=== PATIENT | female | born 1940 | race Caucasian/White ===

== ENCOUNTER → 2018-01-30 08:04 | Outpatient (CLI) | payer MEDICARE, OTHER, SELFPAY ==
[2018-01-30 10:06] LABS: Absolute Lymphocyte Count 1.82 X10^3/ul (0.83-4.51); Absolute Neutrophil Count 2.8 X10^3/uL (2.0-7.7); Basophil# 0.02 X10^3/uL; Basophil% 0.4 % (0-1); Eosinophil# 0.09 X10^3/uL; Eosinophils% 1.7 % (0-5); Hematocrit 40.3 % (37-47); Hemoglobin 12.9 g/dl (12.0-15.0); Lymphocyte # 1.82 X10^3/ul (4.0); Lymphocyte % 34.6 % (19-41); Mean Corpuscular Hgb 29.4 pg (27.0-32.0); Mean Corpuscular Volume 91.8 fL (81-99); Mean Platelet Vol. 10.6 fl (6.2-12.0); Monocyte# 0.52 X10^3/uL; Monocyte% 9.9 % (0-10); Neutrophil % 53.2 % (47-70); Platelet Count 197 K/mm3 (150-450); RBC Distribution Width CV 13.4 % (11.6-14.6); RBC Distribution Width SD 44.6 fl (35.1-43.9); Red Blood Count 4.39 M/mm3 (4.2-5.4); White Blood Count 5.3 K/mm3 (4.4-11.0)
[2018-01-30 10:07] LABS: POSITIVE COUNT NO; POSITIVE DIFFERENTIAL NO; POSITIVE MORPHOLOGY NO
[2018-01-30 10:18] LABS: AST(SGOT) 22 U/L (15-37); Alanine Aminotransfer ALT/SGPT 26 U/L (13-56); Albumin, Serum 3.5 g/dL (3.2-5.0); Alkaline Phosphatase 61 U/L (45-117); Anion Gap 6 (5-15); BUN 17 mg/dL (7-18); BUN/Creat Ratio 15.2 RATIO (10-20); Calcium,Total 8.7 mg/dL (8.5-10.1); Chloride 107 mmol/L (98-107); Creatinine, Serum 1.12 mg/dL (0.55-1.02); EST Glomerular Filtration Rate 50 mL/min (>60); Est Glom Filt Rate - Afr Amer 61 mL/min (>60); Globulin 3.6 g/dL (2.2-4.2); Glucose 74 mg/dL (74-106); Potassium 4.1 mmol/L (3.5-5.1); Protein, Total 7.1 g/dL (6.4-8.2); Sodium Level 143 mmol/L (136-145)
== END ==
PROVIDERS: Family Provider Family Medicine; PCP Family Medicine; Visit Provider Internal Medicine Rheumatology
DX: M06.4 Inflammatory polyarthropathy (principal); M15.9 Polyosteoarthritis, unspecified; M16.0 Bilateral primary osteoarthritis of hip; M47.897 Other spondylosis, lumbosacral region; M17.0 Bilateral primary osteoarthritis of knee; M81.0 Age-related osteoporosis without current pathological fracture
CPT/HCPCS: 36415; 80053; 85025

== ENCOUNTER → 2018-02-25 15:33 | Outpatient (CLI) | payer MEDICARE, OTHER, SELFPAY | PROVIDERS: Family Provider Family Medicine; PCP Family Medicine; Visit Provider Family Medicine | DX: N39.0 Urinary tract infection, site not specified (principal) | CPT/HCPCS: 87086; 87088; 87186 ==

== ENCOUNTER → 2018-05-28 09:15 | Outpatient (CLI) | payer MEDICARE, OTHER, SELFPAY ==
--- NOTE | 2018-05-28 09:20 | BI_ITS ---
MAMMOGRAPHY - BILATERAL SCREENING REASON FOR EXAM: Female, 77 years old. Routine annual screening examination. PERTINENT HISTORY: Non-contributory. TECHNIQUE: Digital bilateral breast sahara (3D mammographic acquisition) in the CC and MLO projections. 2-D mediolateral oblique (MLO) and craniocaudad (CC) views of both breasts were obtained. CAD: Full Field Digital Mammography with Computer Added Detection was performed. COMPARISON: Comparison is made with prior study dated March 26, 2017 and March 07, 2016. FINDINGS: Breast Composition: There are scattered areas of fibroglandular density. There are no dominant masses or suspicious calcifications. No other significant abnormalities are identified. There has been no significant change since the prior study. BI/SCREENING MAMM (CAD), BILAT IMPRESSION: Stable bilateral screening mammogram. Yearly follow-up mammogram recommended. (A) ASSESSMENT CATEGORY: BIRADS Category 1: Negative. A letter regarding these results will be sent to the patient by the facility within 30 days. Approximately 10% of breast cancers are not detected by mammography. A normal mammogram should not delay biopsy of a clinically suspicious abnormality. [id number] Electronically Signed: Josafat Wooten MD at 14:16 EDT Tel [phone], Service support ,
--- NOTE | 2018-05-28 09:27 | BD_ITS ---
STUDY: DUAL ENERGY X-RAY ABSORPTIOMETRY / DXA REASON FOR EXAM: Female, 77 years old. The patient is postmenopausal. No loss of height. TECHNIQUE: Bone Mineral Density (BMD) measurements of lumbar spine and bilateral hips were obtained. COMPARISON: Comparison is made with prior study dated March 07, 2016. FINDINGS: Lumbar Spine (L1-L4): g/cm2 (1.206) / T-score (0.2) / Z-score (2.0) Findings are suggestive of normal bone density with a low fracture risk. Left Femur Total: g/cm2 (0.758) / T-score (-2.0) / Z-score (-0.2) Left Femoral Neck: g/cm2 (0.740) / T-score (-2.1) / Z-score (-0.2) Right Femur Total: g/cm2 (0.764) / T-score (-1.9) / Z-score (-0.1) Right Femoral Neck: g/cm2 (0.752) / T-score (-2.1) / Z-score (-0.1) The T-Scores on the most recent prior examination were: Lumbar Spine (L1-L4): There has been worsening of bone density since the previous examination. Left Femur Total: which represents a worsening of 0.1%. Right Femur Total: which represents a worsening of 2.6%. BD/Dexa Bone Density Study IMPRESSION: The patient is considered osteopenic as outlined below according to World Candido Organization (WHO) criteria with a moderate fracture risk. There has been worsening of bone density since the previous examination. Reference Information: The T-score is the number of standard deviations above or below the standard which is normal for young adults at their peak bone mineral density. The World Health Organization (WHO) interprets the T-scores as follows: Above -1 Normal bone density Between -1 and -2.5 Osteopenia Equal to / or below -2.5 Osteoporosis As a practical clinical guideline, osteopenia may be graded as follows: Mild -1 through -1.5 Moderate -1.6 through -2.0 Severe -2.1 through -2.4 The Z-score is the number of standard deviations above or below age-matched controls. A Z-score of less than -1.5 would be considered abnormal. References: 1. NIH Osteoporosis and Related Bone Diseases http://www.osteo.org 2. International Society for Clinical Densitometry http://www.iscd.org 3. National Osteoporosis Foundation http://www.nof.org Electronically Signed: Josafat Wooten MD at 10:34 EDT Tel [phone], Service support ,
== END ==
PROVIDERS: Family Provider Family Medicine; PCP Family Medicine; Visit Provider Family Medicine
DX: Z12.31 Encounter for screening mammogram for malignant neoplasm of breast (principal); M81.0 Age-related osteoporosis without current pathological fracture
CPT/HCPCS: 77063; 77067; 77080

== ENCOUNTER → 2018-07-22 08:46 | Outpatient (CLI) | payer MEDICARE, OTHER, SELFPAY ==
[2018-07-22 11:57] LABS: Absolute Lymphocyte Count 1.86 X10^3/ul (0.83-4.51); Absolute Neutrophil Count 2.3 X10^3/uL (2.0-7.7); Basophil# 0.02 X10^3/uL; Basophil% 0.4 % (0-1); Eosinophil# 0.09 X10^3/uL; Eosinophils% 1.9 % (0-5); Hematocrit 41.3 % (37-47); Hemoglobin 12.8 g/dl (12.0-15.0); Lymphocyte # 1.86 X10^3/ul (4.0); Lymphocyte % 39.1 % (19-41); Mean Corpuscular Hgb 28.8 pg (27.0-32.0); Mean Corpuscular Volume 92.8 fL (81-99); Monocyte# 0.52 X10^3/uL; Monocyte% 10.9 % (0-10); Neutrophil # 2.27 X10^3/uL (2.7-7.7); Neutrophil % 47.7 % (47-70); Platelet Count 201 K/mm3 (150-450); RBC Distribution Width CV 13.5 % (11.6-14.6); RBC Distribution Width SD 45.9 fl (35.1-43.9); Red Blood Count 4.45 M/mm3 (4.2-5.4); White Blood Count 4.8 K/mm3 (4.4-11.0)
[2018-07-22 11:59] LABS: POSITIVE COUNT NO; POSITIVE DIFFERENTIAL NO; POSITIVE MORPHOLOGY NO
[2018-07-22 12:18] LABS: AST(SGOT) 18 U/L (15-37); Alanine Aminotransfer ALT/SGPT 23 U/L (13-56); Albumin, Serum 3.6 g/dL (3.2-5.0); Alkaline Phosphatase 58 U/L (45-117); Anion Gap 8 (5-15); BUN 13 mg/dL (7-18); BUN/Creat Ratio 12.1 RATIO (10-20); Chloride 105 mmol/L (98-107); Creatinine, Serum 1.07 mg/dL (0.55-1.02); EST Glomerular Filtration Rate 53 mL/min (>60); Est Glom Filt Rate - Afr Amer 64 mL/min (>60); Globulin 3.6 g/dL (2.2-4.2); Glucose 92 mg/dL (74-106); Potassium 4.1 mmol/L (3.5-5.1); Protein, Total 7.2 g/dL (6.4-8.2); Sodium Level 140 mmol/L (136-145)
== END ==
PROVIDERS: Family Provider Family Medicine; PCP Family Medicine; Visit Provider Family Medicine
DX: E55.9 Vitamin D deficiency, unspecified (principal); Z51.81 Encounter for therapeutic drug level monitoring
CPT/HCPCS: 36415; 80053; 82306; 85025

== ENCOUNTER → 2019-04-29 | Outpatient (CLI) | payer MEDICARE, OTHER, SELFPAY ==
[2019-04-29 09:56] LABS: Absolute Lymphocyte Count 1.72 X10^3/ul (0.83-4.51); Absolute Neutrophil Count 2.9 X10^3/uL (2.0-7.7); Basophil# 0.03 X10^3/uL; Basophil% 0.6 % (0-1); Eosinophil# 0.19 X10^3/uL; Eosinophils% 3.6 % (0-5); Hematocrit 42.6 % (37-47); Hemoglobin 13.8 g/dl (12.0-15.0); Lymphocyte # 1.72 X10^3/ul (4.0); Lymphocyte % 32.4 % (19-41); Mean Corp Hgb Conc 32.4 g/gl (32-36); Mean Corpuscular Hgb 29.3 pg (27.0-32.0); Mean Corpuscular Volume 90.4 fL (81-99); Mean Platelet Vol. 10.4 fl (6.2-12.0); Monocyte# 0.52 X10^3/uL; Monocyte% 9.8 % (0-10); Neutrophil # 2.85 X10^3/uL (2.7-7.7); Neutrophil % 53.6 % (47-70); Platelet Count 209 K/mm3 (150-450); RBC Distribution Width CV 12.9 % (11.6-14.6); RBC Distribution Width SD 42.9 fl (35.1-43.9); Red Blood Count 4.71 M/mm3 (4.2-5.4); White Blood Count 5.3 K/mm3 (4.4-11.0)
[2019-04-29 10:16] LABS: POSITIVE COUNT NO; POSITIVE DIFFERENTIAL NO; POSITIVE MORPHOLOGY NO
[2019-04-29 10:39] LABS: AST(SGOT) 19 U/L (15-37); Alanine Aminotransfer ALT/SGPT 22 U/L (13-56); Albumin, Serum 3.8 g/dL (3.2-5.0); Alkaline Phosphatase 64 U/L (45-117); Anion Gap 6 (5-15); BUN 19 mg/dL (7-18); BUN/Creat Ratio 19.3 RATIO (10-20); Calcium,Total 9.3 mg/dL (8.5-10.1); Chloride 107 mmol/L (98-107); Cholesterol 201 mg/dL (200); Creatinine, Serum 0.98 mg/dL (0.55-1.02); EST Glomerular Filtration Rate 58 mL/min (>60); Est Glom Filt Rate - Afr Amer 71 mL/min (>60); Globulin 3.7 g/dL (2.2-4.2); Glucose 80 mg/dL (74-106); High Density Lipoprotein 68 mg/dL; Potassium 3.9 mmol/L (3.5-5.1); Protein, Total 7.5 g/dL (6.4-8.2); Sodium Level 139 mmol/L (136-145); Triglycerides 80 mg/dL; Very Low Density Lipoprotein 16 mg/dL (5-40)
== END | disposition home or self-care (01) ==
PROVIDERS: Family Provider Family Medicine; PCP Family Medicine; Referring Provider Family Medicine; Visit Provider Family Medicine
DX: N28.9 Disorder of kidney and ureter, unspecified (principal); Z51.81 Encounter for therapeutic drug level monitoring; E78.5 Hyperlipidemia, unspecified
CPT/HCPCS: 36415; 80053; 80061; 85025

== ENCOUNTER → 2019-05-31 | Outpatient (CLI) | payer MEDICARE, OTHER, SELFPAY ==
--- NOTE | 2019-05-31 09:56 | BI_ITS ---
MAMMOGRAPHY - BILATERAL SCREENING 3-D TOMOSYNTHESIS REASON FOR EXAM: Female, 78 years old. Bilateral Screening 3-D tomosynthesis PERTINENT HISTORY: No significant family history. TECHNIQUE: 2-D mammograms and 3-D Tomosynthesis of the breast (s) were performed. CAD was performed. COMPARISON: None. FINDINGS: The breast composition is composed of scattered fibroglandular density. Scattered benign calcifications are seen. No dense spiculated masses or suspicious microcalcifications are identified. No architectural distortion is identified. There is no skin thickening or retraction. There has been no significant change since the prior study. BI/SCREEN MAMM (CAD) W/GILMAR BILAT IMPRESSION: No mammographic signs of malignancy. Routine yearly mammograms recommended. ASSESSMENT CATEGORY: BIRADS Category 1: Negative. A letter regarding these results will be sent to the patient by the facility within 30 days. FOLLOW UP RECOMMENDATION: Yearly follow up mammogram recommended. (A) Approximately 10% of breast cancers are not detected by mammography. A normal mammogram should not delay biopsy of a clinically suspicious abnormality. Electronically Signed: Emiliano Meier MD at 12:26 EDT , Service support ,
== END | disposition home or self-care (01) ==
LOC: OPBI 09:54
PROVIDERS: Family Provider Family Medicine; PCP Family Medicine; Referring Provider Family Medicine; Visit Provider Family Medicine
DX: Z12.31 Encounter for screening mammogram for malignant neoplasm of breast (principal)
CPT/HCPCS: 77063; 77067

== ENCOUNTER → 2020-06-21 08:13 | Outpatient (CLI) | payer MEDICARE, OTHER, SELFPAY ==
--- NOTE | 2020-06-21 08:16 | BI_ITS ---
MAMMOGRAPHY - BILATERAL SCREENING REASON FOR EXAM: Female, 79 years old. Routine annual screening examination. PERTINENT HISTORY: Non-contributory. TECHNIQUE: Digital bilateral breast gilmar (3D mammographic acquisition) in the CC and MLO projections. 2-D mediolateral oblique (MLO) and craniocaudad (CC) views of both breasts were obtained. CAD: Full Field Digital Mammography with Computer Added Detection was performed. COMPARISON: Comparison is made with prior examination dated 05/31/2019 and 05/28/2018. FINDINGS: Breast Composition: There are scattered areas of fibroglandular density. There are no dominant masses or suspicious calcifications. Small benign appearing bilateral axillary lymph nodes. No other significant abnormalities are identified. There has been no significant change since the prior study. BI/SCREEN MAMM (CAD) W/GILMAR BILAT IMPRESSION: Stable bilateral screening mammogram. Yearly follow-up mammogram recommended. (A) ASSESSMENT CATEGORY: BIRADS Category 2: Benign. A letter regarding these results will be sent to the patient by the facility within 30 days. Approximately 10% of breast cancers are not detected by mammography. A normal mammogram should not delay biopsy of a clinically suspicious abnormality. [id number] Electronically Signed: Josafat Wooten, at 10:06 EDT , Service support ,
== END ==
PROVIDERS: PCP Family Medicine; Referring Provider Family Medicine; Visit Provider Family Medicine
DX: Z12.31 Encounter for screening mammogram for malignant neoplasm of breast (principal)
CPT/HCPCS: 77063; 77067

== ENCOUNTER → 2020-07-19 07:41 | Outpatient (CLI) | payer MEDICARE, OTHER, SELFPAY ==
[2020-07-19 10:24] LABS: Absolute Lymphocyte Count 1.81 X10^3/uL (0.83-4.51); Absolute Neutrophil Count 2.4 X10^3/uL (2.0-7.7); Basophil# 0.03 X10^3/uL; Basophil% 0.6 % (0-1); Eosinophil# 0.16 X10^3/uL; Eosinophils% 3.3 % (0-5); Hematocrit 42.5 % (37-47); Hemoglobin 13.6 g/dL (12.0-15.0); Lymphocyte # 1.81 X10^3/ul (4.0); Lymphocyte % 36.8 % (19-41); Mean Corpuscular Hgb 29.6 pg (27.0-32.0); Mean Corpuscular Volume 92.4 fL (81-99); Mean Platelet Vol. 10.8 fl (6.2-12.0); Monocyte# 0.52 X10^3/uL; Monocyte% 10.6 % (0-10); NRBC Flagged by Analyzer 0 % (0-5); Neutrophil # 2.38 X10^3/uL (2.7-7.7); Neutrophil % 48.3 % (47-70); Platelet Count 207 K/mm3 (150-450); RBC Distribution Width CV 12.8 % (11.6-14.6); RBC Distribution Width SD 43.6 fl (35.1-43.9); White Blood Count 4.9 K/mm3 (4.4-11.0)
[2020-07-19 10:38] LABS: AST(SGOT) 24 U/L (15-37); Alanine Aminotransfer ALT/SGPT 28 U/L (13-56); Albumin, Serum 3.8 g/dL (3.2-5.0); Alkaline Phosphatase 54 U/L (45-117); Anion Gap 5 (5-15); BUN 20 mg/dL (7-18); BUN/Creat Ratio 17.2 RATIO (10-20); Calcium,Total 9.6 mg/dL (8.5-10.1); Chloride 105 mmol/L (98-107); Creatinine, Serum 1.16 mg/dL (0.55-1.02); EST Glomerular Filtration Rate 48 mL/min (>60); Est Glom Filt Rate - Afr Amer 58 mL/min (>60); Globulin 3.8 g/dL (2.2-4.2); Glucose 83 mg/dL (74-106); Potassium 4.1 mmol/L (3.5-5.1); Protein, Total 7.6 g/dL (6.4-8.2); Sodium Level 139 mmol/L (136-145)
[2020-07-19 10:40] LABS: Vitamin D,25 Hydroxy 67.6 ng/mL
== END ==
PROVIDERS: PCP Family Medicine; Referring Provider Family Medicine; Visit Provider Family Medicine
DX: E55.9 Vitamin D deficiency, unspecified (principal); N28.9 Disorder of kidney and ureter, unspecified; Z13.220 Encounter for screening for lipoid disorders; Z51.81 Encounter for therapeutic drug level monitoring
CPT/HCPCS: 36415; 80053; 82306; 85025

== ENCOUNTER → 2020-12-18 15:10 | Outpatient (CLI) | payer MEDICARE, OTHER, SELFPAY | PROVIDERS: PCP Family Medicine; Referring Provider Family Medicine; Visit Provider Family Medicine | DX: Z20.828 Contact with and (suspected) exposure to other viral communicable diseases (principal) | CPT/HCPCS: 87635; C9803; U0005; U0003 ==

== ENCOUNTER → 2021-04-25 10:48 | Outpatient (CLI) | payer MEDICARE, OTHER, SELFPAY ==
--- NOTE | 2021-04-25 10:54 | EKG12_ITS ---
Test Reason : PRE-OP Blood Pressure : / mmHG Vent. Rate : 067 BPM Atrial Rate : 067 BPM P-R Int : 148 ms QRS Dur : 072 ms QT Int : 404 ms P-R-T Axes : 028 037 015 degrees QTc Int : 426 ms Normal sinus rhythm Normal ECG Confirmed by AISHA SANTILLAN, TYRA ([id number]), legal editor SAIMA MALAVE ([id number]) on 04/26/2021 11:17:45 A M Referred By: Tigre Ogden Confirmed By:STEVEN LEONARD MD
[2021-04-25 11:37] LABS: Hematocrit 41.6 % (37-47); Hemoglobin 13.2 g/dL (12.0-15.0); Mean Corp Hgb Conc 31.7 g/dL (32-36); Mean Corpuscular Hgb 29.2 pg (27.0-32.0); Mean Platelet Vol. 10.6 fl (6.2-12.0); Platelet Count 196 K/mm3 (150-450); RBC Distribution Width SD 43.9 fl (35.1-43.9); Red Blood Count 4.52 M/mm3 (4.2-5.4); White Blood Count 5.7 K/mm3 (4.4-11.0)
[2021-04-25 12:08] LABS: Anion Gap 2 (5-15); BUN 13 mg/dL (7-18); BUN/Creat Ratio 11.8 RATIO (10-20); Calcium,Total 9.7 mg/dL (8.5-10.1); Chloride 105 mmol/L (98-107); EST Glomerular Filtration Rate 51 mL/min (>60); Est Glom Filt Rate - Afr Amer 62 mL/min (>60); Glucose 88 mg/dL (74-106); Potassium 4.6 mmol/L (3.5-5.1); Sodium Level 138 mmol/L (136-145)
== END ==
PROVIDERS: PCP Family Medicine; Referring Provider Physician Assistant; Visit Provider Physician Assistant
DX: Z01.818 Encounter for other preprocedural examination (principal); Z01.810 Encounter for preprocedural cardiovascular examination
CPT/HCPCS: 36415; 80048; 85027; 93005

== ENCOUNTER → 2021-07-20 07:43 | Outpatient (CLI) | payer MEDICARE, OTHER, SELFPAY ==
--- NOTE | 2021-07-20 07:52 | BI_ITS ---
MAMMOGRAPHY - BILATERAL SCREENING REASON FOR EXAM: Female, 80 years old. Routine annual screening examination. PERTINENT HISTORY: Non-contributory. TECHNIQUE: Digital bilateral breast gilmar (3D mammographic acquisition) in the CC and MLO projections. 2-D mediolateral oblique (MLO) and craniocaudad (CC) views of both breasts were obtained. CAD: Full Field Digital Mammography with Computer Added Detection was performed. COMPARISON: Comparison is made with prior study 06/21/2020 and 05/31/2019 FINDINGS: Breast Composition: There are scattered areas of fibroglandular density. There are no dominant masses or suspicious calcifications. Small benign-appearing bilateral axillary lymph nodes. No other significant abnormalities are identified. There has been no significant change since the prior study. BI/SCRN MAMM (CAD)W/GILMAR BILAT IMPRESSION: Stable bilateral screening mammogram. Yearly follow-up mammogram recommended. (A) ASSESSMENT CATEGORY: BIRADS Category 2: Benign. A letter regarding these results will be sent to the patient by the facility within 30 days. Approximately 10% of breast cancers are not detected by mammography. A normal mammogram should not delay biopsy of a clinically suspicious abnormality. [id number] Electronically Signed: Josafat Wooten MD at 9:03 EDT , Service support ,
== END ==
PROVIDERS: PCP Family Medicine; Referring Provider Family Medicine; Visit Provider Family Medicine
DX: Z12.31 Encounter for screening mammogram for malignant neoplasm of breast (principal)
CPT/HCPCS: 77063; 77067

== ENCOUNTER → 2021-08-09 09:08 | Outpatient (CLI) | payer MEDICARE, OTHER, SELFPAY ==
--- NOTE | 2021-08-09 09:10 | RAD_ITS ---
STUDY: X-RAY CHEST REASON FOR EXAM: Female, 80 years old. COUGH TECHNIQUE: PA and lateral COMPARISON: None. FINDINGS: There is minor interstitial thickening in the lower lobes. Patchy areas of opacification is seen peripherally in the left lower lobe which may be consistent with Covid 19 pneumonia.. There is no demonstrated pleural abnormality. Normal size heart. Normal mediastinum and dulce maria. Normal visualized pulmonary arteries. Normal visualized aortic arch and descending thoracic aorta. Normal visualized thoracic spine. Normal visualized ribs, clavicles, and shoulders. There is no demonstrated abnormality of the visualized soft tissue structures of the upper abdomen. RAD/Chest PA and Lateral IMPRESSION: Findings highly suggestive of Covid 19 pneumonia with most pronounced involvement in left lower lobe Electronically Signed: Trevor Love MD at 17:06 EDT , Service support ,
== END ==
PROVIDERS: PCP Family Medicine; Referring Provider Family Medicine; Visit Provider Family Medicine
DX: R05 Cough (principal); B94.8 Sequelae of other specified infectious and parasitic diseases
CPT/HCPCS: 71046

== ENCOUNTER → 2022-07-24 | Outpatient (CLI) | payer MEDICARE, OTHER, SELFPAY ==
--- NOTE | 2022-07-24 08:26 | BI_ITS ---
MAMMOGRAPHY - BILATERAL SCREENING REASON FOR EXAM: Female, 81 years old. Routine annual screening examination. PERTINENT HISTORY: Non-contributory. TECHNIQUE: Digital bilateral breast gilmar (3D mammographic acquisition) in the CC and MLO projections. 2-D mediolateral oblique (MLO) and craniocaudad (CC) views of both breasts were obtained. CAD: Full Field Digital Mammography with Computer Added Detection was performed. COMPARISON: Comparison is made with prior study 07/20/2021 and 06/21/2020. FINDINGS: Breast Composition: There are scattered areas of fibroglandular density. There are no dominant masses or suspicious calcifications. No other significant abnormalities are identified. There has been no significant change since the prior study. BI/SCRN MAMM (CAD)W/GILMAR BILAT IMPRESSION: Stable bilateral screening mammogram. Yearly follow-up mammogram recommended. (A) ASSESSMENT CATEGORY: BIRADS Category 1: Negative. A letter regarding these results will be sent to the patient by the facility within 30 days. Approximately 10% of breast cancers are not detected by mammography. A normal mammogram should not delay biopsy of a clinically suspicious abnormality. [id number] Electronically Signed: Josafat Wooten MD at 9:00 EDT ,
== END | disposition home or self-care (01) ==
LOC: OPBI 08:25
PROVIDERS: PCP Family Medicine; Referring Provider Family Medicine; Visit Provider Family Medicine
DX: Z12.31 Encounter for screening mammogram for malignant neoplasm of breast (principal)
CPT/HCPCS: 77063; 77067

== ENCOUNTER → 2022-08-26 | Outpatient (CLI) | payer MEDICARE, OTHER, SELFPAY ==
[2022-08-26 12:19] LABS: Absolute Lymphocyte Count 2.27 X10^3/uL (0.83-4.51); Absolute Neutrophil Count 2.9 X10^3/uL (2.0-7.7); Basophil# 0.03 X10^3/uL; Basophil% 0.5 % (0-1); Eosinophil# 0.12 X10^3/uL; Hematocrit 43.5 % (37-47); Hemoglobin 13.6 g/dL (12.0-15.0); Lymphocyte # 2.27 X10^3/ul (0.83-4.51); Lymphocyte % 38.3 % (19-41); Mean Corp Hgb Conc 31.3 g/dL (32-36); Mean Corpuscular Hgb 29.2 pg (27.0-32.0); Mean Corpuscular Volume 93.3 fL (81-99); Mean Platelet Vol. 10.8 fl (6.2-12.0); Monocyte# 0.59 X10^3/uL; NRBC Flagged by Analyzer 0 % (0-5); Neutrophil # 2.89 X10^3/uL (2.7-7.7); Neutrophil % 48.9 % (47-70); Platelet Count 242 K/mm3 (150-450); RBC Distribution Width CV 13.5 % (11.6-14.6); RBC Distribution Width SD 45.8 fl (35.1-43.9); Red Blood Count 4.66 M/mm3 (4.2-5.4); White Blood Count 5.9 K/mm3 (4.4-11.0)
[2022-08-26 13:43] LABS: Vitamin D,25 Hydroxy 72.6 ng/mL
[2022-08-26 13:50] LABS: AST(SGOT) 21 U/L (15-37); Alanine Aminotransfer ALT/SGPT 25 U/L (13-56); Albumin, Serum 3.8 g/dL (3.2-5.0); Alkaline Phosphatase 62 U/L (45-117); Anion Gap 8 (5-15); BUN 16 mg/dL (7-18); BUN/Creat Ratio 14.4 RATIO (10-20); Calcium,Total 9.5 mg/dL (8.5-10.1); Chloride 105 mmol/L (98-107); Cholesterol 195 mg/dL (200); Creatinine, Serum 1.11 mg/dL (0.55-1.02); EST Glomerular Filtration Rate 50 mL/min (>60); Est Glom Filt Rate - Afr Amer 61 mL/min (>60); Globulin 3.7 g/dL (2.2-4.2); Glucose 99 mg/dL (74-106); High Density Lipoprotein 80 mg/dL; Potassium 4.4 mmol/L (3.5-5.1); Protein, Total 7.5 g/dL (6.4-8.2); Sodium Level 141 mmol/L (136-145); Triglycerides 75 mg/dL; Very Low Density Lipoprotein 15 mg/dL (5-40)
== END | disposition home or self-care (01) ==
LOC: BFHLAB 08:53
PROVIDERS: PCP Family Medicine; Referring Provider Family Medicine; Visit Provider Family Medicine
DX: Z00.00 Encounter for general adult medical examination without abnormal findings (principal); E55.9 Vitamin D deficiency, unspecified; E78.5 Hyperlipidemia, unspecified
CPT/HCPCS: 36415; 80053; 80061; 82306; 85025

== ENCOUNTER → 2023-08-07 | Outpatient (CLI) | payer MEDICARE, OTHER, SELFPAY ==
--- NOTE | 2023-08-07 15:14 | BI_ITS ---
MAMMOGRAPHY - BILATERAL SCREENING REASON FOR EXAM: Female, 82 years old. Routine annual screening examination. PERTINENT HISTORY: Non-contributory. TECHNIQUE: Digital bilateral breast gilmar (3D mammographic acquisition) in the CC and MLO projections. 2-D mediolateral oblique (MLO) and craniocaudad (CC) views of both breasts were obtained. CAD: Full Field Digital Mammography with Computer Added Detection was performed. COMPARISON: Comparison is made with prior study dated July 24, 2022 and July 20, 2021. FINDINGS: Breast Composition: There are scattered areas of fibroglandular density. There are no dominant masses or suspicious calcifications. No other significant abnormalities are identified. There has been no significant change since the prior study. BI/SCRN MAMM (CAD)W/GILMAR BILAT IMPRESSION: Stable bilateral screening mammogram. Yearly follow-up mammogram recommended. (A) ASSESSMENT CATEGORY: BIRADS Category 1: Negative. A letter regarding these results will be sent to the patient by the facility within 30 days. Approximately 10% of breast cancers are not detected by mammography. A normal mammogram should not delay biopsy of a clinically suspicious abnormality. [id number] Electronically Signed: Josafat Wooten MD at 8:50 EDT ,
--- NOTE | 2023-08-07 15:20 | BD_ITS ---
STUDY: DUAL ENERGY X-RAY ABSORPTIOMETRY / DXA REASON FOR EXAM: Female, 82 years old. [id number] TECHNIQUE: Bone Mineral Density (BMD) measurements of lumbar spine and bilateral hips were obtained. COMPARISON: Comparison is made with prior study dated May 28, 2018. FINDINGS: Lumbar Spine (L1-L4): g/cm2 (1.012) / T-score (-0.3) / Z-score (2.4) Findings are suggestive of normal bone density with a low fracture risk. Left Femur Total: g/cm2 (0.680) / T-score (-2.1) / Z-score (0.0) Left Femoral Neck: g/cm2 (0.588) / T-score (-2.3) / Z-score (0.0) Right Femur Total: g/cm2 (0.691) / T-score (-2.1) / Z-score (0.1) Right Femoral Neck: g/cm2 (0.596) / T-score (-2.3) / Z-score (0.1) The T-Scores on the most recent prior examination were: Lumbar Spine (L1-L4): There has been worsening of bone density since the previous examination. Left Femur Total: which represents a worsening of 2.7%. Right Femur Total: which represents a worsening of 2%. BD/Dexa Bone Density Study IMPRESSION: The patient is considered osteopenic as outlined below according to World Candido Organization (WHO) criteria with a high fracture risk. There has been worsening of bone density since the previous examination. Reference Information: The T-score is the number of standard deviations above or below the standard which is normal for young adults at their peak bone mineral density. The World Health Organization (WHO) interprets the T-scores as follows: Above -1 Normal bone density Between -1 and -2.5 Osteopenia Equal to / or below -2.5 Osteoporosis As a practical clinical guideline, osteopenia may be graded as follows: Mild -1 through -1.5 Moderate -1.6 through -2.0 Severe -2.1 through -2.4 The Z-score is the number of standard deviations above or below age-matched controls. A Z-score of less than -1.5 would be considered abnormal. References: 1. NIH Osteoporosis and Related Bone Diseases www osteo.org 2. International Society for Clinical Densitometry www iscd.org 3. National Osteoporosis Foundation www nof.org Electronically Signed: Josafat Wooten MD at 14:22 EDT ,
== END | disposition home or self-care (01) ==
LOC: OPBD 15:13
PROVIDERS: PCP Family Medicine; Referring Provider Family Medicine; Visit Provider Family Medicine
DX: Z12.31 Encounter for screening mammogram for malignant neoplasm of breast (principal); M81.0 Age-related osteoporosis without current pathological fracture
CPT/HCPCS: 77063; 77067; 77080

== ENCOUNTER → 2023-08-29 | Outpatient (CLI) | payer MEDICARE, OTHER, SELFPAY ==
[2023-08-29 10:17] LABS: Absolute Lymphocyte Count 2.14 X10^3/uL (0.83-4.51); Absolute Neutrophil Count 3.9 X10^3/uL (2.0-7.7); Basophil# 0.03 X10^3/uL; Basophil% 0.4 % (0-1); Eosinophil# 0.27 X10^3/uL; Eosinophils% 3.8 % (0-5); Hematocrit 41.9 % (37-47); Hemoglobin 13.3 g/dL (12.0-15.0); Lymphocyte # 2.14 X10^3/ul (0.83-4.51); Lymphocyte % 30.4 % (19-41); Mean Corp Hgb Conc 31.7 g/dL (32-36); Mean Corpuscular Hgb 29.2 pg (27.0-32.0); Mean Corpuscular Volume 91.9 fL (81-99); Mean Platelet Vol. 10.5 fl (6.2-12.0); Monocyte# 0.68 X10^3/uL; Monocyte% 9.6 % (0-10); NRBC Flagged by Analyzer 0 % (0-5); Neutrophil % 55.4 % (47-70); Platelet Count 205 K/mm3 (150-450); RBC Distribution Width CV 13.2 % (11.6-14.6); RBC Distribution Width SD 44.2 fl (35.1-43.9); Red Blood Count 4.56 M/mm3 (4.2-5.4); White Blood Count 7.1 K/mm3 (4.4-11.0)
[2023-08-29 10:36] LABS: Vitamin D,25 Hydroxy 58.4 ng/mL
[2023-08-29 11:19] LABS: ALB/GLOB Ratio 0.9 RATIO (0.9-2.4); AST(SGOT) 15 U/L (15-37); Alanine Aminotransfer ALT/SGPT 22 U/L (13-56); Albumin, Serum 3.5 g/dL (3.2-5.0); Alkaline Phosphatase 56 U/L (45-117); Anion Gap 7 (5-15); BUN 17 mg/dL (7-18); BUN/Creat Ratio 15.7 RATIO (10-20); Calcium,Total 9.4 mg/dL (8.5-10.1); Chloride 106 mmol/L (98-107); Cholesterol 174 mg/dL (200); Creatinine, Serum 1.08 mg/dL (0.55-1.02); EST Glomerular Filtration Rate 52 mL/min (>60); Est Glom Filt Rate - Afr Amer 63 mL/min (>60); Globulin 3.7 g/dL (2.2-4.2); Glucose 94 mg/dL (74-106); High Density Lipoprotein 62 mg/dL; Potassium 4.2 mmol/L (3.5-5.1); Protein, Total 7.2 g/dL (6.4-8.2); Sodium Level 140 mmol/L (136-145); Triglycerides 128 mg/dL; Very Low Density Lipoprotein 26 mg/dL (5-40)
== END | disposition home or self-care (01) ==
PROVIDERS: PCP Family Medicine; Referring Provider Family Medicine; Visit Provider Family Medicine
DX: N28.9 Disorder of kidney and ureter, unspecified (principal); E78.5 Hyperlipidemia, unspecified; E55.9 Vitamin D deficiency, unspecified
CPT/HCPCS: 36415; 80053; 80061; 82306; 85025

== ENCOUNTER → 2024-09-21 | Outpatient (CLI) | payer MEDICARE, OTHER, SELFPAY ==
[2024-09-21 12:25] LABS: Absolute Lymphocyte Count 2.48 X10^3/uL (0.83-4.51); Absolute Neutrophil Count 3.5 X10^3/uL (2.0-7.7); Basophil# 0.03 X10^3/uL; Basophil% 0.4 % (0-1); Eosinophil# 0.17 X10^3/uL; Eosinophils% 2.4 % (0-5); Hematocrit 40.4 % (37-47); Hemoglobin 12.5 g/dL (12.0-15.0); Lymphocyte # 2.48 X10^3/ul (0.83-4.51); Lymphocyte % 35.4 % (19-41); Mean Corp Hgb Conc 30.9 g/dL (32-36); Mean Corpuscular Hgb 29.5 pg (27.0-32.0); Mean Corpuscular Volume 95.3 fL (81-99); Mean Platelet Vol. 10.5 fl (6.2-12.0); Monocyte# 0.79 X10^3/uL; Monocyte% 11.3 % (0-10); NRBC Flagged by Analyzer 0 % (0-5); Neutrophil # 3.52 X10^3/uL (2.7-7.7); Neutrophil % 50.2 % (47-70); Platelet Count 196 K/mm3 (150-450); RBC Distribution Width CV 13.8 % (11.6-14.6); RBC Distribution Width SD 48.8 fl (35.1-43.9); Red Blood Count 4.24 M/mm3 (4.2-5.4)
[2024-09-21 12:59] LABS: ALB/GLOB Ratio 0.9 RATIO (0.9-2.4); AST(SGOT) 18 U/L (15-37); Alanine Aminotransfer ALT/SGPT 18 U/L (13-56); Albumin, Serum 3.5 g/dL (3.2-5.0); Alkaline Phosphatase 51 U/L (45-117); Anion Gap 6 (5-15); BUN 21 mg/dL (7-18); BUN/Creat Ratio 21.2 RATIO (10-20); Calcium,Total 9.1 mg/dL (8.5-10.1); Chloride 105 mmol/L (98-107); Cholesterol 193 mg/dL (200); Creatinine, Serum 0.99 mg/dL (0.55-1.02); EST Glomerular Filtration Rate 57 mL/min (>60); Est Glom Filt Rate - Afr Amer 69 mL/min (>60); Globulin 3.8 g/dL (2.2-4.2); Glucose 92 mg/dL (74-106); High Density Lipoprotein 69 mg/dL; Potassium 4.2 mmol/L (3.5-5.1); Protein, Total 7.3 g/dL (6.4-8.2); Sodium Level 139 mmol/L (136-145); Triglycerides 103 mg/dL; Very Low Density Lipoprotein 21 mg/dL (5-40)
== END | disposition home or self-care (01) ==
LOC: BFHLAB 08:15
PROVIDERS: PCP Family Medicine; Referring Provider Family Medicine; Visit Provider Family Medicine
DX: E55.9 Vitamin D deficiency, unspecified (principal); E78.5 Hyperlipidemia, unspecified; Z51.81 Encounter for therapeutic drug level monitoring
CPT/HCPCS: 36415; 80053; 80061; 82306; 85025

== ENCOUNTER → 2025-09-28 | Outpatient (CLI) | payer MEDICARE, OTHER, SELFPAY ==
--- OUTSIDE RECORDS SUMMARY | 2025-09-28 08:10 | XMS RPT_ITS | CCD ---
Author Organization [facility] Care Team Providers Care Application Penetration Tester Name Role Phone Dr. Kaitlyn Oleary DO Primary Care Physician Jossie SANTILLAN, Dr. Rainey Attending Physician Dr. Kaitlyn Oleary DO Referring Provider [phone] Kaitlyn Oleary Primary Care Unavailable Micys, Kaitlyn Attending Unavailable Micys, Kaitlyn Referring Unavailable Malys, Kaitlyn Attending Unavailable Micys, Kaitlyn Referring Unavailable Malys, Kaitlyn Primary Care Unavailable Mamta, Kaitlyn Referring Unavailable Micys, Kaitlyn Primary Care Unavailable Brigid Sethi Attending Unavailable Medications Current Medications Medication Drug Class(es) Dates Sig (Normalized) Sig (Original) estradiol 0.1 mg/ml vaginal cream (1 source) Estrogen Start: 07-27-2025 Estradiol 0.01 % (0.1 mg/gram) cream Active 1 g VAGINAL 3 TIMES A WEEK July 27, 2025 12:00am Complies with drug therapy Problems Active Problems Problem Classification Problem Date Documented Date Episodic/Chronic Disorders of lipid metabolism (1 source) Hyperlipidemia, unspecified; Translations: [Hyperlipidemia, unspecified] Onset: 09-20-2024 Chronic Genitourinary symptoms and ill-defined conditions (1 source) Nocturia; Translations: [Nocturia] Onset: 09-06-2025 Episodic Menopausal disorders (1 source) Postmenopausal atrophic vaginitis; Translations: [Postmenopausal atrophic vaginitis] Onset: 09-06-2025 Chronic Nutritional deficiencies (2 sources) Vitamin D deficiency, unspecified; Translations: [Vitamin D deficiency, unspecified] Onset: 09-20-2024 Chronic Prolapse of female genital organs (1 source) Incomplete uterovaginal prolapse; Translations: [Incomplete uterovaginal prolapse] Onset: 09-06-2025 Chronic Past or Other Problems Problem Classification Problem Date Documented Da te Episodic/Chronic Other aftercare (1 source) Encounter for therapeutic drug level monitoring; Translations: [Encounter for therapeutic drug level monitoring] Onset: 09-20-2024 Episodic Results Test Name Value Interpretation Reference Range Facility MR/Marcelo 07-27-2025 MR/SHRUTHI [facility] [address], [address] [place] [address] OFFICE VISIT Date of Service: 07/27/25 MR#: [id number] Acct: [id number] Name: ELAN MACKEY Rep #: [id number] : 1940 Provider: Dr. 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 Mother Bladder cancer Brother Pancreatic cancer Social History adopted: No household members: spouse housing: house current occupational status: retired leisure activities: exercise do you think of yourself as: straight/heterosexua l current gender identity: female Smoking Status: Former smoker alcohol intake: never substance use type: does not use what type of physical activity do you participate in: walking seatbelt use: always do you feel safe at home: Yes HPI HPI Urology Chief Complaint: 3 mo pessary cleaning Details: ELAN MACKEY, is a 84 F. She is not cleaning the pessary on her own. The pessary has stayed in placed since her last visit. There is no vaginal bleeding or excess vaginal discharge. She is able to urinate without straining and has no difficulties with bowel movements. She is satisfied with the pessary as treatment for her urologic issues. She is using estrogen cream as recommended. ROS Const Constitutional: No chills, fatigue, fever(s), headache(s), night sweats, weakness, weight change, abnormal sleep pattern or change in appetite Eyes Eyes: No change in vision ENT ENT: No headache(s) or dry mouth Resp Respiratory: No cough, chest congestion, shortness of breath or wheezing Cardio Cardiology: Positive for other (No chest pain.); No shortness of breath, irregular heart rhythm or lightheadedness Gastro GI: Positive for other (No nausea.); No abdominal pain, change in bowel habits, constipation, diarrhea or vomiting Musc Musculoskeletal: No abnormal gait Skin Skin: No yellowing of the eye, lesions, itchy eyes, rash or skin ulcer Neuro Neurology: No abnormal gait, confusion, dizziness, weakness, headache(s) or memory loss Psych Psychiatric: No abnormal sleep pattern, No change in appetite, No confusion and No memory loss Endo Endocrine: No fatigue, increased thirst/drinking or weight change Aller/Imm Allergy/Immunologic: No itchy eyes or wheezing Herminio/Lymp Hematologic/Lymphati c: No easy bleeding, easy bruising or enlarged lymph nodes Exam Const General: cooperative, healthy appearing, comfortable and no acute distress [facility] Head: normocephalic and atraumatic Ears: hearing grossly normal bilaterally and external ears normal Nose: external nose normal Eyes General: appearance normal, both eyes and all related structures Neck Neck: normal visual inspection and trachea midline Chest Chest palpation inspection: normal inspection of the chest Resp Effort Inspection: normal respiratory effort, able to speak in complete sentences and symmetric chest movement Cardio Rate: regular rate GI Inspection: normal to inspection Palpation: soft and nontender General: No CVA tenderness Other: The pessary was removed without difficulty. There was minimal normal vaginal drainage present. The vaginal mucosa in its entirety was examined. There are no ulcerations, lacerations or breaks in the mucosa identified. There is no active bleeding. The pessary was cleaned and replaced without any issues. Skin General: no rashes or lesions noted Neuro General: patient alert, patient awake, patient oriented x3 and CN's II-XI intact bilaterally Extrem General: normal to inspection Psych Appearance: grossly normal and well kempt Mental Status: mental status grossly normal Coding Level of Care Code Off vis,est,level 2 Diagnoses Incomplete uterovaginal prolapse N81.2 Postmenopausal atrophic vagini (more content not included)... Normal [facility] CBC W/Diff, Automatedon 11-11 11-2023 Absolute Lymph 2.48 X10 3/uL Normal 0.83-4.51 [facility] Comment on above: Performed By: #### L 506.1000, L500.4100, L500.4050, L100.0100 #### [facility] [address] [place], [address] Absolute Neut 3.5 X10 3/uL Normal 2.0-7.7 [facility] Comment on above: Performed By: #### L 506.1000, L500.4100, L500.4050, L100.0100 #### [facility] [address] [place], [address] Basophils/100 WBC (Bld) 0.4 % Normal 0-1 [facility] Comment on above: Performed By: #### L 506.1000, L500.4100, L500.4050, L100.0100 #### [facility] [address] [place], [address] Eosinophils/100 WBC (Bld) 2.4 % Normal 0-5 [facility] Comment on above: Performed By: #### L 506.1000, L500.4100, L500.4050, L100.0100 #### [facility] [address] [place], [address] Erythrocyte distribution width (RBC) [Ratio] 13.8 % Normal 11.6-14.6 [facility] Comment on above: Performed By: #### L 506.1000, L500.4100, L500.4050, L100.0100 #### [facility] [address] [place], [address] Hematocrit (Bld) [Volume fraction] 40.4 % Normal 37-47 [facility] Comment on above: Performed By: #### L 506.1000, L500.4100, L500.4050, L100.0100 #### [facility] [address] [place], [address] Hemoglobin (Bld) [Mass/Vol] 12.5 g/dL Normal 12.0-15.0 [facility] Comment on above: Performed By: #### L 506.1000, L500.4100, L500.4050, L100.0100 #### [facility] [address] [place], [address] IG% 0.300 Normal 0.0-0.9 [facility] Comment on above: Result Comment: IG% - Immature Granulocytes (promyelocytes, myelocytes and metamyelocytes) > 1% indicates that a LEFT SHIFT is Present. Performed By: #### L 506.1000, L500.4100, L500.4050, L100.0100 #### [facility] [address] [place], [address] Lymphocytes/100 WBC (Bld) 35.4 % Normal 19-41 [facility] Comment on above: Performed By: #### L 506.1000, L500.4100, L500.4050, L100.0100 #### [facility] [address] [place], [address] MCH (RBC) [Entitic mass] 29.5 pg Normal 27.0-32.0 [facility] Comment on above: Performed By: #### L 506.1000, L500.4100, L500.4050, L100.0100 #### [facility] [address] [place], [address] MCHC (RBC) [Mass/Vol] 30.9 g/dL Low 32-36 [facility] Comment on above: Performed By: #### L 506.1000, L500.4100, L500.4050, L100.0100 #### [facility] [address] [place], [address] MCV (RBC) [Entitic vol] 95.3 fL Normal 81-99 [facility] Comment on above: Performed By: #### L 506.1000, L500.4100, L500.4050, L100.0100 #### [facility] [address] [place], [address] Monocytes/100 WBC (Bld) 11.3 % High 0-10 [facility] Comment on above: Performed By: #### L 506.1000, L500.4100, L500.4050, L100.0100 #### [facility] [address] [place], [address] Neutrophils/100 WBC (Bld) 50.2 % Normal 47-70 [facility] Comment on above: Performed By: #### L 506.1000, L500.4100, L500.4050, L100.0100 #### [facility] [address] [place], [address] Nucleated RBC (Bld) [#/Vol] 0 10*3/uL Normal 0-5 [facility] Comment on above: Performed By: #### L 506.1000, L500.4100, L500.4050, L100.0100 #### [facility] [address] [place], [address] Platelet mean volume (Bld) [Entitic vol] 10.5 fL Normal 6.2-12.0 [facility] Comment on above: Performed By: #### L 506.1000, L500.4100, L500.4050, L100.0100 #### [facility] [address] [place], [address] Platelets (Bld) [#/Vol] 196 10*3/uL Normal 150-450 [facility] Comment on above: Performed By: #### L 506.1000, L500.4100, L500.4050, L100.0100 #### [facility] [address] [place], [address] RBC (Bld) [#/Vol] 4.24 10*6/uL Normal 4.2-5.4 [facility] Comment on above: Performed By: #### L 506.1000, L500.4100, L500.4050, L100.0100 #### [facility] [address] [place], [address] RDW SD 48.8 fl High 35.1-43.9 [facility] Comment on above: Performed By: #### L 506.1000, L500.4100, L500.4050, L100.0100 #### [facility] [address] [place], [address] WBC (Bld) [#/Vol] 7.0 10*3/uL Normal 4.4-11.0 [facility] Comment on above: Performed By: #### L 506.1000, L500.4100, L500.4050, L100.0100 #### [facility] [address] [place], [address] Comprehensive Metabolic Prof [facility] 09-21-2024 Albumin [Mass/Vol] 3.5 g/dL Normal 3.2-5.0 [facility] Comment on above: Performed By: #### L 506.1000, L500.4100, L500.4050, L100.0100 #### [facility] [address] [place], [address] Albumin/Globulin [Mass ratio] 0.9 {ratio} Normal 0.9-2.4 [facility] Comment on above: Performed By: #### L 506.1000, L500.4100, L500.4050, L100.0100 #### [facility] [address] [place], [address] ALK P 51 U/L Normal 45-117 [facility] Comment on above: Performed By: #### L 506.1000, L500.4100, L500.4050, L100.0100 #### [facility] [address] [place], [address] ALT [Catalytic activity/Vol] 18 U/L Normal 13-56 [facility] Comment on above: Performed By: #### L 506.1000, L500.4100, L500.4050, L100.0100 #### [facility] [address] [place], [address] AST [Catalytic activity/Vol] 18 U/L Normal 15-37 [facility] Comment on above: Performed By: #### L 506.1000, L500.4100, L500.4050, L100.0100 #### [facility] [address] [place], [address] Bilirubin [Mass/Vol] 0.60 mg/dL Normal 0.20-1.00 [facility] Comment on above: Result Comment: For patients on eltrombopag therapy, use of Dimension [place] TBIL is not recommended. Performed By: #### L 506.1000, L500.4100, L500.4050, L100.0100 #### [facility] [address] [place], [address] BUN/CRE 21.2 RATIO High 10-20 [facility] Comment on above: Performed By: #### L 506.1000, L500.4100, L500.4050, L100.0100 #### [facility] [address] [place], [address] CA,Total 9.1 mg/dL Normal 8.5-10.1 [facility] Comment on above: Performed By: #### L 506.1000, L500.4100, L500.4050, L100.0100 #### [facility] [address] [place], [address] Chloride [Moles/Vol] 105 mmol/L Normal 98-107 [facility] Comment on above: Performed By: #### L 506.1000, L500.4100, L500.4050, L100.0100 #### [facility] [address] [place], [address] CO2 [Moles/Vol] 28.0 mmol/L Normal 21.0-32.0 [facility] Comment on above: Performed By: #### L 506.1000, L500.4100, L500.4050, L100.0100 #### [facility] [address] [place], [address] Creatinine [Mass/Vol] 0.99 mg/dL Normal 0.55-1.02 [facility] Comment on above: Result Comment: The validity of the calculated GFR GFRAA in patients over 70 years has not been determined. Clinical correlation is essential. Performed By: #### L 506.1000, L500.4100, L500.4050, L100.0100 #### [facility] [address] [place], [address] EST GFR - AA 69 mL/min Normal >60 [facility] Comment on above: Result Comment: Afri can Danish GFR Calc Performed By: #### L 506.1000, L500.4100, L500.4050, L100.0100 #### [facility] [address] [place], [address] GAP 6 Normal 5-15 [facility] Comment on above: Performed By: #### L 506.1000, L500.4100, L500.4050, L100.0100 #### [facility] [address] [place], [address] GFR/1.73 sq M.predicted among non-blacks MDRD (S/P/Bld) [Vol rate/Area] 57 mL/min/{1.73_m2} Low >60 [facility] Comment on above: Result Comment: Non- GFR Calc Performed By: #### L 506.1000, L500.4100, L500.4050, L100.0100 #### [facility] [address] [place], [address] Globulin (S) [Mass/Vol] 3.8 g/dL Normal 2.2-4.2 [facility] Comment on above: Performed By: #### L 506.1000, L500.4100, L500.4050, L100.0100 #### [facility] [address] [place], [address] Glucose [Mass/Vol] 92 mg/dL Normal 74-106 [facility] Comment on above: Performed By: #### L 506.1000, L500.4100, L500.4050, L100.0100 #### [facility] [address] [place], [address] Potassium [Moles/Vol] 4.2 mmol/L Normal 3.5-5.1 [facility] Comment on above: Performed By: #### L 506.1000, L500.4100, L500.4050, L100.0100 #### [facility] [address] [place], [address] Sodium [Moles/Vol] 139 mmol/L Normal 136-145 [facility] Comment on above: Performed By: #### L 506.1000, L500.4100, L500.4050, L100.0100 #### [facility] [address] [place], [address] T PROT 7.3 g/dL Normal 6.4-8.2 [facility] Comment on above: Performed By: #### L 506.1000, L500.4100, L500.4050, L100.0100 #### [facility] [address] [place], [address] Urea nitrogen [Mass/Vol] 21 mg/dL High 7-18 [facility] Comment on above: Performed By: #### L 506.1000, L500.4100, L500.4050, L100.0100 #### [facility] [address] [place], [address] Lipid Profileon 09-21-2024 Cholesterol [Mass/Vol] 193 mg/dL Normal 200 [facility] Comment on above: Result Comment: <200 mg/dL Desirable 200-240 mg/dL Borderline >240 mg/dL High Risk Performed By: #### L 506.1000, L500.4100, L500.4050, L100.0100 #### [facility] [address] [place], [address] Cholesterol in HDL [Mass/Vol] 69 mg/dL Normal [facility] Comment on above: Result Comment: The drugs N-Acetylcysteine and Metamizole may falsely depress this assay. Reference Range HDL <40 mg/dL Low HDL Cholesterol HDL >or= 60 mg/dL High HDL Cholesterol Performed By: #### L 506.1000, L500.4100, L500.4050, L100.0100 #### [facility] [address] [place], [address] Cholesterol in LDL [Mass/Vol] 103 mg/dL Normal 0-130 [facility] Comment on above: Performed By: #### L 506.1000, L500.4100, L500.4050, L100.0100 #### [facility] [address] [place], [address] Cholesterol in VLDL [Mass/Vol] 21 mg/dL Normal 5-40 [facility] Comment on above: Performed By: #### L 506.1000, L500.4100, L500.4050, L100.0100 #### [facility] [address] [place], [address] Triglyceride [Mass/Vol] 103 mg/dL Normal [facility] Comment on above: Result Comment: The drugs N-Acetylcysteine and Metamizole may falsely depress this assay. Serum Triglycerides Reference Interval Normal <150 mg/dL Borderline high 150 - 199 mg/dL High 200 - 499 mg/dL Very High > or = 500 mg/dL Performed By: #### L 506.1000, L500.4100, L500.4050, L100.0100 #### [facility] [address] [place], [address] Vitamin D,25 Hydroxyon 09-21 Vitamin D 25-OH 50.0 ng/mL Normal [facility] Comment on above: Result Comment: Elyse min D 25(OH) Status Range Deficiency <20 ng/mL (50nmol/L) Insufficiency 20 - 30 ng/mL (50 - 75 nmol/L) Sufficiency 30 - 100 ng/mL (75 - 250 nmol/L) Toxicity >100 ng/mL (>250 nmol/L) Performed By: #### L 506.1000, L500.4100, L500.4050, L100.0100 #### [facility] [address] [place], [address] Absolute lymphocyte countOrd ered By: Kaitlyn Oleary on 08-29-2023 Lymphocytes Auto (Unsp spec) [#/Vol] 2.14 10*3/uL 0.83-4.51 [facility] Basophil percentageOrdered B y: Kaitlyn Oleary on 08-29-2023 Basophils/100 WBC (Bld) 0.4 % 0-1 [facility] Bilirubin [Mass/Vol] 0.70 mg/dL 0.20-1.00 [facility] Comment on above: For patients on eltr ombopag therapy, use of Dimension [place] TBIL is not recommended. Chloride [Moles/Vol] 106 mmol/L 98-107 [facility] Cholesterol [Mass/Vol] 174 mg/dL <200 [facility] Comment on above: <200 mg/dL Desirable 200-240 mg/dL Borderline >240 mg/dL High Risk Eosinophils/100 WBC (Bld) 3.8 % 0-5 [facility] Glucose [Mass/Vol] 94 mg/dL 74-106 [facility] Neutrophils (Bld) [#/Vol] 3.9 10*3/uL 2.0-7.7 [facility] Neutrophils/100 WBC (Bld) 55.4 % 47-70 [facility] Potassium [Moles/Vol] 4.2 mmol/L 3.5-5.1 [facility] Protein [Mass/Vol] 7.2 g/dL 6.4-8.2 [facility] Sodium [Moles/Vol] 140 mmol/L 136-145 [facility] Triglyceride [Mass/Vol] 128 mg/dL <199 [facility] Comment on above: The drugs N-Acetylcy steine and Metamizole may falsely depress this assay.Serum Triglycerides Reference Interval Normal <150 mg/dL Borderline high 150 - 199 mg/dL High 200 - 499 mg/dL Very High > or = 500 mg/dL WBC (Bld) [#/Vol] 7.1 10*3/uL 4.4-11.0 [facility] Blood erythrocytes count (nu mber/volume)Ordered By: Kaitlyn Oleary on 08-29-2023 RBC (Bld) [#/Vol] 4.56 10*6/uL 4.2-5.4 [facility] Blood hemoglobin measurement (mass/volume)Ordered By: Kaitlyn Oleary on 08-29-2023 Hemoglobin (Bld) [Mass/Vol] 13.3 g/dL 12.0-15.0 [facility] Blood lymphocytes/100 leukoc ytesOrdered By: Kaitlyn Oleary on 08-29-2023 Lymphocytes/100 WBC (Bld) 30.4 % 19-41 [facility] Blood monocytes/100 leukocyt esOrdered By: Kaitlyn Oleary on 08-29-2023 Monocytes/100 WBC (Bld) 9.6 % 0-10 [facility] Blood platelet mean volumeOr dered By: Kaitlyn Oleary on 08-29-2023 Platelet mean volume (Bld) [Entitic vol] 10.5 fL 6.2-12.0 [facility] Determination of erythrocyte mean corpuscular volume (MCV)Ordered By: Kaitlyn Oleary on 08-29-2023 MCV (RBC) [Entitic vol] 91.9 fL 81-99 [facility] Hematocrit Auto (Bld) [Volum e fraction]Ordered By: Kaitlyn Oleary on 08-29-2023 Hematocrit (Bld) [Volume fraction] 41.9 % 37-47 [facility] - Chemistry and C hemistry - challengeOrdered By: Kaitlyn Oleary on 08-29-2023 ALP [Catalytic activity/Vol] 56 U/L 45-117 [facility] ALT [Catalytic activity/Vol] 22 U/L 13-56 [facility] CO2 [Moles/Vol] 27.0 mmol/L 21.0-32.0 [facility] Globulin (S) [Mass/Vol] 3.7 g/dL 2.2-4.2 [facility] Urea nitrogen/Creatinine [Mass ratio] 15.7 mg/mg 10 [facility] - Hematology and Cell countsOrdered By: Kaitlyn Oleary on 08-29-2023 Erythrocyte distribution width (RBC) [Entitic vol] 44.2 fL 35.1-43.9 [facility] Erythrocyte distribution width (RBC) [Ratio] 13.2 % 11.6-14.6 [facility] Immature granulocytes/100 WBC (Bld) 0.400 % 0.0-0.9 [facility] Comment on above: IG% - Immature Granu locytes (promyelocytes, myelocytes and metamyelocytes) > 1% indicates that a LEFT SHIFT is Present. MCH (RBC) [Entitic mass] 29.2 pg 27.0-32.0 [facility] Nucleated RBC/100 WBC (Bld) [Ratio] 0 % 0-5 [facility] MCHC Auto (RBC) [Mass/Vol]Or dered By: Kaitlyn Oleary on 08-29-2023 MCHC (RBC) [Mass/Vol] 31.7 g/dL 32-36 [facility] No Panel InformationOrdered By: Kaitlyn Oleary on 08-29-2023 Estimated GFR (MDRD) Amer 63 mL/min >60 [facility] Comment on above: GFR Calc Estimated GFR (MDRD) Non-Af Amer 52 mL/min >60 [facility] Comment on above: Non- GFR Calc Vitamin D 25-Hydroxy 58.4 ng/mL [facility] Comment on above: Vitamin D 25(OH) Sta tus Range Deficiency <20 ng/mL (50nmol/L) Insufficiency 20 - 30 ng/mL (50 - 75 nmol/L) Sufficiency 30 - 100 ng/mL (75 - 250 nmol/L) Toxicity >100 ng/mL (>250 nmol/L) Platelets bldOrdered By: Nadiya Oleary on 08-29-2023 Platelets (Bld) [#/Vol] 205 10*3/uL 150-450 [facility] Serum or plasma albumin rell urement (mass/volume)Ordered By: Kaitlyn Oleary on 08-29-2023 Albumin [Mass/Vol] 3.5 g/dL 3.2-5.0 [facility] Serum or plasma albumin/glob ulin mass ratioOrdered By: Kaitlyn Oleary on 08-29-2023 Albumin/Globulin [Mass ratio] 0.9 {ratio} 0.9-2.4 [facility] Serum or plasma calcium rell urement (mass/volume)Ordered By: Kaitlyn Oleary on 08-29-2023 Calcium [Mass/Vol] 9.4 mg/dL 8.5-10.1 [facility] Serum or plasma cholesterol in HDL measurement (mass/volume)Ordered By: Kaitlyn Oleary on 08-29-2023 Cholesterol in HDL [Mass/Vol] 62 mg/dL >40 [facility] Comment on above: The drugs N-Acetylcy steine and Metamizole may falsely depress this assay. Reference Range HDL <40 mg/dL Low HDL Cholesterol HDL >or= 60 mg/dL High HDL Cholesterol Serum or plasma cholesterol in VLDL measurement (mass/volume)Ordered By: Kaitlyn Micana rosa on 08-29-2023 Cholesterol in VLDL [Mass/Vol] 26 mg/dL 5-40 [facility] Serum or plasma creatinine m easurement (mass/volume)Ordered By: Kaitlyn Haileana rosa on 08-29-2023 Creatinine [Mass/Vol] 1.08 mg/dL 0.55-1.02 [facility] Comment on above: The validity of the calculated GFR & GFRAA in patients over 70 years has not been determined. Clinical correlation is essential. Serum or plasma low density lipoprotein (LDL) cholesterol measurement (mass/volume)Ordered By: Kaitlyndelores Oleary on 08-29-2023 Cholesterol in LDL [Mass/Vol] 86 mg/dL 0-130 [facility] Serum or plasma urea nitroge n measurement (mass/volume)Ordered By: Kaitlyn Micana rosa on 08-29-2023 Urea nitrogen [Mass/Vol] 17 mg/dL 7-18 [facility] Thin prep Papanicolaou smear with manual screeningOrdered By: Kaitlyn Micana rosa on 08-29-2023 Thin prep Papanicolaou smear with manual screening 15 U/L 15-37 [facility] Thin prep Papanicolaou smear with manual screening 7 5-15 [facility] Absolute lymphocyte counton 08-26-2022 Lymphocytes Auto (Unsp spec) [#/Vol] 2.27 10*3/uL 0.83-4.51 [facility] Work Phone: Basophil percentageon 2021 Basophils/100 WBC (Bld) 0.5 % 0-1 [facility] Work Phone: Bilirubin [Mass/Vol] 0.70 mg/dL 0.20-1.00 [facility] Work Phone: Comment on above: For patients on eltr ombopag therapy, use of Dimension [place] TBIL is not recommended. Chloride [Moles/Vol] 105 mmol/L 98-107 [facility] Work Phone: Cholesterol [Mass/Vol] 195 mg/dL <200 [facility] Work Phone: Comment on above: <200 mg/dL Desirable 200-240 mg/dL Borderline >240 mg/dL High Risk Eosinophils/100 WBC (Bld) 2.0 % 0-5 [facility] Work Phone: Glucose [Mass/Vol] 99 mg/dL 74-106 [facility] Work Phone: Neutrophils (Bld) [#/Vol] 2.9 10*3/uL 2.0-7.7 [facility] Work Phone: Neutrophils/100 WBC (Bld) 48.9 % 47-70 [facility] Work Phone: Potassium [Moles/Vol] 4.4 mmol/L 3.5-5.1 [facility] Work Phone: Protein [Mass/Vol] 7.5 g/dL 6.4-8.2 [facility] Work Phone: Sodium [Moles/Vol] 141 mmol/L 136-145 [facility] Work Phone: Triglyceride [Mass/Vol] 75 mg/dL <199 [facility] Work Phone: Comment on above: The drugs N-Acetylcy steine and Metamizole may falsely depress this assay.Serum Triglycerides Reference Interval Normal <150 mg/dL Borderline high 150 - 199 mg/dL High 200 - 499 mg/dL Very High > or = 500 mg/dL WBC (Bld) [#/Vol] 5.9 10*3/uL 4.4-11.0 [facility] Work Phone: Blood erythrocytes count (nu mber/volume)on 08-26-2022 RBC (Bld) [#/Vol] 4.66 10*6/uL 4.2-5.4 [facility] Work Phone: Blood hemoglobin measurement (mass/volume)on 08-26-2022 Hemoglobin (Bld) [Mass/Vol] 13.6 g/dL 12.0-15.0 [facility] Work Phone: Blood lymphocytes/100 leukoc yteson 08-26-2022 Lymphocytes/100 WBC (Bld) 38.3 % 19-41 [facility] Work Phone: Blood monocytes/100 leukocyt eson 08-26-2022 Monocytes/100 WBC (Bld) 10.0 % 0-10 [facility] Work Phone: Blood platelet mean volumeon 08-26-2022 Platelet mean volume (Bld) [Entitic vol] 10.8 fL 6.2-12.0 [facility] Work Phone: Determination of erythrocyte mean corpuscular volume (MCV)on 08-26-2022 MCV (RBC) [Entitic vol] 93.3 fL 81-99 [facility] Work Phone: Hematocrit Auto (Bld) [Volum e fraction]on 08-26-2022 Hematocrit (Bld) [Volume fraction] 43.5 % 37-47 [facility] Work Phone: Laboratory - Chemistry and C hemistry - challengeon 08-26-2022 ALP [Catalytic activity/Vol] 62 U/L 45-117 [facility] Work Phone: ALT [Catalytic activity/Vol] 25 U/L 13-56 [facility] Work Phone: CO2 [Moles/Vol] 28.0 mmol/L 21.0-32.0 [facility] Work Phone: Globulin (S) [Mass/Vol] 3.7 g/dL 2.2-4.2 [facility] Work Phone: Urea nitrogen/Creatinine [Mass ratio] 14.4 mg/mg 10-20 [facility] Work Phone: Laboratory - Hematology and Cell countson 08-26-2022 Erythrocyte distribution width (RBC) [Entitic vol] 45.8 fL 35.1-43.9 [facility] Work Phone: Erythrocyte distribution width (RBC) [Ratio] 13.5 % 11.6-14.6 [facility] Work Phone: Immature granulocytes/100 WBC (Bld) 0.300 % 0.0-0.9 [facility] Work Phone: Comment on above: IG% - Immature Granu locytes (promyelocytes, myelocytes and metamyelocytes) > 1% indicates that a LEFT SHIFT is Present. MCH (RBC) [Entitic mass] 29.2 pg 27.0-32.0 [facility] Work Phone: Nucleated RBC/100 WBC (Bld) [Ratio] 0 % 0-5 [facility] Work Phone: MCHC Auto (RBC) [Mass/Vol]on 08-26-2022 MCHC (RBC) [Mass/Vol] 31.3 g/dL 32-36 [facility] Work Phone: No Panel Informationon 08-26 Estimated GFR (MDRD) Amer 61 mL/min >60 [facility] Work Phone: Comment on above: GFR Calc Estimated GFR (MDRD) Non-Af Amer 50 mL/min >60 [facility] Work Phone: Comment on above: Non- GFR Calc Vitamin D 25-Hydroxy 72.6 ng/mL [facility] Work Phone: Comment on above: Vitamin D 25(OH) Sta tus Range Deficiency <20 ng/mL (50nmol/L) Insufficiency 20 - 30 ng/mL (50 - 75 nmol/L) Sufficiency 30 - 100 ng/mL (75 - 250 nmol/L) Toxicity >100 ng/mL (>250 nmol/L) Platelets bldon 08-26-2022 Platelets (Bld) [#/Vol] 242 10*3/uL 150-450 [facility] Work Phone: Serum or plasma albumin rell urement (mass/volume)on 08-26-2022 Albumin [Mass/Vol] 3.8 g/dL 3.2-5.0 [facility] Work Phone: Serum or plasma albumin/glob ulin mass ratioon 08-26-2022 Albumin/Globulin [Mass ratio] 1.0 {ratio} 0.9-2.4 [facility] Work Phone: Serum or plasma calcium rell urement (mass/volume)on 08-26-2022 Calcium [Mass/Vol] 9.5 mg/dL 8.5-10.1 [facility] Work Phone: Serum or plasma cholesterol in HDL measurement (mass/volume)on 08-26-2022 Cholesterol in HDL [Mass/Vol] 80 mg/dL >40 [facility] Work Phone: Comment on above: The drugs N-Acetylcy steine and Metamizole may falsely depress this assay. Reference Range HDL <40 mg/dL Low HDL Cholesterol HDL >or= 60 mg/dL High HDL Cholesterol Serum or plasma cholesterol in VLDL measurement (mass/volume)on 08-26-2022 Cholesterol in VLDL [Mass/Vol] 15 mg/dL 5-40 [facility] Work Phone: Serum or plasma creatinine m easurement (mass/volume)on 08-26-2022 Creatinine [Mass/Vol] 1.11 mg/dL 0.55-1.02 [facility] Work Phone: Comment on above: The validity of the calculated GFR & GFRAA in patients over 70 years has not been determined. Clinical correlation is essential. Serum or plasma low density lipoprotein (LDL) cholesterol measurement (mass/volume)on 08-26-2022 Cholesterol in LDL [Mass/Vol] 100 mg/dL 0-130 [facility] Work Phone: Serum or plasma urea nitroge n measurement (mass/volume)on 08-26-2022 Urea nitrogen [Mass/Vol] 16 mg/dL 7-18 [facility] Work Phone: Thin prep Papanicolaou smear with manual screeningon 08-26-2022 Thin prep Papanicolaou smear with manual screening 21 U/L 15-37 [facility] Work Phone: Thin prep Papanicolaou smear with manual screening 8 5-15 [facility] Work Phone: Vital Signs Date Time Vital Sign Value Performing Clinician Rosi higuera 07-27-2025 09:18-0400 Body height 154.[address] Kaitlyn Oleary DO Work Phone: [facility] 07-27-2025 09:18-0400 Body mass index (BMI) [Ratio] 27.9 kg/m2 Dr. Kaitlyn Oleary DO Work Phone: [facility] 07-27-2025 09:18-0400 Body temperature 98 [degF] Dr. Kaitlyn Oleary DO Work Phone: [facility] 07-27-2025 09:18-0400 Body weight 67.[address] Kaitlyn Oleary DO Work Phone: [facility] 07-27-2025 09:18-0400 Diastolic blood pressure 82 mm[Hg] Dr. Kaitlyn Oleary DO Work Phone: [facility] 07-27-2025 09:18-0400 Heart rate 74 /min Dr. Kaitlyn Oleary DO Work Phone: [facility] 07-27-2025 09:18-0400 Systolic blood pressure 124 mm[Hg] Dr. Kaitlyn Oleary DO Work Phone: [facility] Encounters Encounter Date Encounter Type Care Provider Facility Start: 07-27-2025 End: 07-27-[address] Brigid Sethi MD -[facility] Work Phone: Start: 07-27-2025 End: 07-27-[address] Kaitlyn Oleary DO Work Phone: -[facility] Start: 05-10-2025 Non-patient / Non-visit Dr. Brigid smith MD -[facility] Work Phone: Start: 10-20-2024 ambulatory Kaitlyn Oleary Facility:[facility] Start: 09-21-2024 End: 09-21-2024 ambulatory Kaitlyn Malys Facility:[facility] Start: 08-29-2023 End: 08-29-[address] [facility] Work Phone: Start: 08-29-2023 End: 08-29-[address] [facility] [place] Work Phone: Start: 08-07-2023 End: 08-07-[address] [facility] Work Phone: Start: 08-07-2023 End: 08-07-[address] [facility] Work Phone: Start: 08-26-2022 End: 08-26-[address] [facility] Work Phone: Start: 08-26-2022 End: 08-26-[address] [facility] Start: 07-24-2022 End: 07-24-[address] [facility] Work Phone: Start: 07-24-2022 End: 07-24-[address] [facility] Procedures Date Procedure Procedure Detail Performing Clinician Start: 08-07-2023 Dual energy X-ray absorptiometry Start: 08-07-2023 Screening mammography Start: 07-24-2022 Screening mammography Payers Date Payer Category Payer Private Health Insurance [id number] 2024 Self-pay [id number] 2006 Medicare [id number] Unknown [id number] Unknown [id number] Unknown [id number] Social History Date Type Detail [facility] if [facility] smoked [facility] Work Phone: Start: 1940 Sex Assigned At Female [facility] Tobacco smoking stat [facility] Unknown if ever smoked [facility] Work Phone: Sex Female [facility] Evaluation note Note Date & Type Note Facility Evaluation note No assessment information availa ble [facility] Work Phone: Reason for referral (narrative) Note Date & Type Note Facility Reason for referral (narrative) No reason for referral information available [facility] Work Phone: Chief Complaint and Reason for Visit Chief Complaint SCREENING Chief Complaint SCREENING/OSTEO Chief Complaint SCREENING/OSTEO LABS Chief Complaint Admit Date 3 mo pessary cleaning July 27 8:56am Summary Purpose Family History No Family History Records Found Advance Directives No Advanced Directives Records Found Additional Source Comments Goals (unrecognized section and content) Goals may be documented in a n alternate sectionGoals may be documented in an alternate sectionGoals may be documented in an alternate sectionGoals may be documented in an alternate sectionGoals may be documented in an alternate section Care Teams (unrecognized sec tion and content) Team Status: Active Member Role Status Dates Dr. Kaitlyn Oleary DO Family Provider Active Dr. Kaitlyn Oleary DO Primary Care Provider Active Team Status: Inactive Member Role Status Dates Dr. Kaitlyn Oleary DO Primary Care Provide r, Attending Provider, Referring Provider Active Team Status: Active Member Role/Relationship Status Dates Dr. Kaitlyn Oleary DO Primary care physician Active Team Status: Inactive Member Role/Relationship Status Dates Dr. Kaitlyn Oleary DO Primary care physician Active Start: May 10, 2025 Dr. Brigid Sethi MD Attending physician Active Start: May 10, 2025 Team Status: Inactive Member Role/Relationship Status Dates Dr. Kaitlyn Oleary DO Primary care physician Active Start: July 27, 2025 End: July 27, 2025 Dr. Kaitlyn Oleary DO Referring Provider Active St art: July 27, 2025 End: July 27, 2025 Dr. Brigid Sethi MD Attending physician Active Start: July 27, 2025 End: July 27, 2025 INFORMATION SOURCE (unrecogn ized section and content) DATE CREATED AUTHOR 09/07/2025 [facility] FOR RECORDS PERTAINING TO PATIENTS WHO ARE OR HAVE BEEN ENROLLED IN A CHEMICAL DEPENDENCY/SUBSTANCEABUSE PROGRAM, SOME INFORMATION MAY BE OMITTED. This clinical summary was aggregated from multiple sources. Caution should be exercised in using it in the provision of clinical care. This summary normalizes information from multiple sources, and as a consequence, information in this document may materially change the coding, format and clinical context of patient data. In addition, data may be omitted in some cases. CLINICAL DECISIONS SHOULD BE BASED ON THE PRIMARY CLINICAL RECORDS. [facility]. provides no warranty or guarantee of the accuracy or completeness of information in this document.
[2025-09-28 10:19] LABS: Hematocrit 41.3 % (37-47); Hemoglobin 13.3 g/dL (12.0-15.0); Immature Granulocytes Count 0.010 X10^3/uL (0.0-0.0); Mean Corp Hgb Conc 32.2 g/dL (32-36); Mean Corpuscular Volume 92.8 fL (81-99); Mean Platelet Vol. 10.4 fl (6.2-12.0); NRBC Flagged by Analyzer 0 % (0-5); Platelet Count 212 K/mm3 (150-450); RBC Distribution Width CV 13.2 % (11.6-14.6); RBC Distribution Width SD 45.4 fl (35.1-43.9); Red Blood Count 4.45 M/mm3 (4.2-5.4); White Blood Count 6.6 K/mm3 (4.4-11.0)
[2025-09-28 10:56] LABS: AST(SGOT) 22 U/L (<=31); Alanine Aminotransfer ALT/SGPT 14 U/L (<=34); Albumin, Serum 4.1 g/dL (3.4-4.8); Alkaline Phosphatase 49 U/L (35-104); Anion Gap 8 (5-15); BUN 15 mg/dL (4-19); BUN/Creat Ratio 15.5 RATIO (10-20); Calcium,Total 10.0 mg/dL (7.6-11.0); Carbon Dioxide 27.7 mmol/L (21.0-32.0); Chloride 104 mmol/L (98-108); Cholesterol 190 mg/dL (<=200); Globulin 3.4 g/dL (2.2-4.2); Glucose 94 mg/dL (70-99); Low Density Lipoprotein Calc. 104 mg/dL; Potassium 4.3 mmol/L (3.3-5.1); Triglycerides 132 mg/dL; Very Low Density Lipoprotein 26 mg/dL (5-40); Vitamin D,25 Hydroxy 75.8 ng/mL (30-100); cholesterol:hdl ratio screen 3.04
== END | disposition home or self-care (01) ==
PROVIDERS: PCP Family Medicine; Referring Provider Family Medicine; Visit Provider Family Medicine
DX: Z51.81 Encounter for therapeutic drug level monitoring (principal); E55.9 Vitamin D deficiency, unspecified; E78.5 Hyperlipidemia, unspecified
CPT/HCPCS: 36415; 80053; 80061; 82306; 85025

== ENCOUNTER → 2025-10-18 | Outpatient (CLI) | payer MEDICARE, OTHER, SELFPAY ==
--- NOTE | 2025-10-18 08:52 | BD_ITS ---
PROCEDURE: DEXA BONE DENSITY STUDY N/A REASON FOR EXAM: F, age 84 y/o . Postmenopausal. TECHNIQUE: Procedure Code: BDDBD Modality: DX Procedure: DEXA BONE DENSITY STUDY COMPARISON: August 07, 2023. FINDINGS: BMD and T-SCORES Lumbar spine: 1.038 g/cm2, T-score -0.1 Levels: L1 through L4 Change from prior: Improvement of 2.5%. Left femoral neck: 0.620 g/cm2, T-score -2.1 Femoral neck comparison data not recommended for monitoring change. Left total hip: 0.712 g/cm2, T-score -1.9 Change from prior: Improvement of 4.7%. Right femoral neck: 0.658 g/cm2, T-score -1.7 Femoral neck comparison data not recommended for monitoring change. Right total hip: 0.709 g/cm2, T-score -1.9 Change from prior: Improvement of 2.7%. The World Health Organization has defined the following categories based on bone density: Normal bone density: T-score equal to or greater than -1.0 Osteopenia: T-score between -1.0 and -2.5 Osteoporosis: T-score equal to or less than -2.5 FRAX (or Comparable) Fracture Risk Assessment: 10 Year Probability of Fracture: Major Osteoporotic Fracture: 32% Hip Fracture: 11% (Note: FRAX is not to be reported in setting of normal range bone density, osteoporosis on DEXA, known history of osteoporosis, prior osteoporotic hip or vertebral fracture, or for any patient undergoing pharmacological treatment for bone loss.) The National Osteoporosis Foundation (NOF) recommends pharmacological treatment for patients with a FRAX 10-year risk of 3% or higher for a hip fracture, or 20% or higher for a major osteoporotic fracture, to prevent osteoporosis and reduce fracture risk. The patient does meet the pharmacological treatment recommendations for prevention of osteoporosis. BD/Dexa Bone Density Study IMPRESSION: OSTEOPENIA. Recommend follow-up as clinically warranted. Reading Location: [place] [id number]
--- OUTSIDE RECORDS SUMMARY | 2025-10-18 09:46 | XMS RPT_ITS | CCD ---
Author Organization [facility] Care Team Providers Care Plant Manager Name Role Phone Dr. Kaitlyn Oleary DO Primary Care Physician Jossie SANTILLAN, Dr. Rainey Attending Physician Dr. Kaitlyn Oleary DO Referring Provider [phone] Kaitlyn Oleary Primary Care Unavailable Micys, Kaitlyn [...] Interpretation Reference Range Facility MR/Marcelo 07-27-2025 MR/SHRUTHI [facility] [address], [address] [place] [address] OFFICE VISIT Date of Service: 07/27/25 MR#: [id number] Acct: [id number] Name: ELAN MACKEY Rep #: [id number] : 1940 Provider: Dr. 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 Normal [facility] CBC W/Diff, Automatedon 11-11 11-2023 Absolute Lymph 2.48 X10 3/uL Normal 0.83-4.51 [facility] Comment on above: Performed By: #### L 506.1000, L500.4100, L500.4050, L100.0100 #### [facility] [address] [place], [address] Absolute Neut 3.5 X10 3/uL Normal 2.0-7.7 [facility] Comment on above: Performed By: #### L 506.1000, L500.4100, L500.4050, L100.0100 #### [facility] [address] [place], [address] Basophils/100 WBC (Bld) 0.4 % Normal 0-1 [facility] Comment on above: Performed By: #### L 506.1000, L500.4100, L500.4050, L100.0100 #### [facility] [address] [place], [address] Eosinophils/100 WBC (Bld) 2.4 % Normal 0-5 [facility] Comment on above: Performed By: #### L 506.1000, L500.4100, L500.4050, L100.0100 #### [facility] [address] [place], [address] Erythrocyte distribution width (RBC) [Ratio] 13.8 % Normal 11.6-14.6 [facility] Comment on above: Performed By: #### L 506.1000, L500.4100, L500.4050, L100.0100 #### [facility] [address] [place], [address] Hematocrit (Bld) [Volume fraction] 40.4 % Normal 37-47 [facility] Comment on above: Performed By: #### L 506.1000, L500.4100, L500.4050, L100.0100 #### [facility] [address] [place], [address] Hemoglobin (Bld) [Mass/Vol] 12.5 g/dL Normal 12.0-15.0 [facility] Comment on above: Performed By: #### L 506.1000, L500.4100, L500.4050, L100.0100 #### [facility] [address] [place], [address] IG% 0.300 Normal 0.0-0.9 [facility] Comment on above: Result Comment: IG% - Immature Granulocytes (promyelocytes, myelocytes and metamyelocytes) > 1% indicates that a LEFT SHIFT is Present. Performed By: #### L 506.1000, L500.4100, L500.4050, L100.0100 #### [facility] [address] [place], [address] Lymphocytes/100 WBC (Bld) 35.4 % Normal 19-41 [facility] Comment on above: Performed By: #### L 506.1000, L500.4100, L500.4050, L100.0100 #### [facility] [address] [place], [address] MCH (RBC) [Entitic mass] 29.5 pg Normal 27.0-32.0 [facility] Comment on above: Performed By: #### L 506.1000, L500.4100, L500.4050, L100.0100 #### [facility] [address] [place], [address] MCHC (RBC) [Mass/Vol] 30.9 g/dL Low 32-36 [facility] Comment on above: Performed By: #### L 506.1000, L500.4100, L500.4050, L100.0100 #### [facility] [address] [place], [address] MCV (RBC) [Entitic vol] 95.3 fL Normal 81-99 [facility] Comment on above: Performed By: #### L 506.1000, L500.4100, L500.4050, L100.0100 #### [facility] [address] [place], [address] Monocytes/100 WBC (Bld) 11.3 % High 0-10 [facility] Comment on above: Performed By: #### L 506.1000, L500.4100, L500.4050, L100.0100 #### [facility] [address] [place], [address] Neutrophils/100 WBC (Bld) 50.2 % Normal 47-70 [facility] Comment on above: Performed By: #### L 506.1000, L500.4100, L500.4050, L100.0100 #### [facility] [address] [place], [address] Nucleated RBC (Bld) [#/Vol] 0 10*3/uL Normal 0-5 [facility] Comment on above: Performed By: #### L 506.1000, L500.4100, L500.4050, L100.0100 #### [facility] [address] [place], [address] Platelet mean volume (Bld) [Entitic vol] 10.5 fL Normal 6.2-12.0 [facility] Comment on above: Performed By: #### L 506.1000, L500.4100, L500.4050, L100.0100 #### [facility] [address] [place], [address] Platelets (Bld) [#/Vol] 196 10*3/uL Normal 150-450 [facility] Comment on above: Performed By: #### L 506.1000, L500.4100, L500.4050, L100.0100 #### [facility] [address] [place], [address] RBC (Bld) [#/Vol] 4.24 10*6/uL Normal 4.2-5.4 [facility] Comment on above: Performed By: #### L 506.1000, L500.4100, L500.4050, L100.0100 #### [facility] [address] [place], [address] RDW SD 48.8 fl High 35.1-43.9 [facility] Comment on above: Performed By: #### L 506.1000, L500.4100, L500.4050, L100.0100 #### [facility] [address] [place], [address] WBC (Bld) [#/Vol] 7.0 10*3/uL Normal 4.4-11.0 [facility] Comment on above: Performed By: #### L 506.1000, L500.4100, L500.4050, L100.0100 #### [facility] [address] [place], [address] Comprehensive Metabolic Prof [facility] 09-21-2024 Albumin [Mass/Vol] 3.5 g/dL Normal 3.2-5.0 [facility] Comment on above: Performed By: #### L 506.1000, L500.4100, L500.4050, L100.0100 #### [facility] [address] [place], [address] Albumin/Globulin [Mass ratio] 0.9 {ratio} Normal 0.9-2.4 [facility] Comment on above: Performed By: #### L 506.1000, L500.4100, L500.4050, L100.0100 #### [facility] [address] [place], [address] ALK P 51 U/L Normal 45-117 [facility] Comment on above: Performed By: #### L 506.1000, L500.4100, L500.4050, L100.0100 #### [facility] [address] [place], [address] ALT [Catalytic activity/Vol] 18 U/L Normal 13-56 [facility] Comment on above: Performed By: #### L 506.1000, L500.4100, L500.4050, L100.0100 #### [facility] [address] [place], [address] AST [Catalytic activity/Vol] 18 U/L Normal 15-37 [facility] Comment on above: Performed By: #### L 506.1000, L500.4100, L500.4050, L100.0100 #### [facility] [address] [place], [address] Bilirubin [Mass/Vol] 0.60 mg/dL Normal 0.20-1.00 [facility] Comment on above: Result Comment: For patients on eltrombopag therapy, use of Dimension [place] TBIL is not recommended. Performed By: #### L 506.1000, L500.4100, L500.4050, L100.0100 #### [facility] [address] [place], [address] BUN/CRE 21.2 RATIO High 10-20 [facility] Comment on above: Performed By: #### L 506.1000, L500.4100, L500.4050, L100.0100 #### [facility] [address] [place], [address] CA,Total 9.1 mg/dL Normal 8.5-10.1 [facility] Comment on above: Performed By: #### L 506.1000, L500.4100, L500.4050, L100.0100 #### [facility] [address] [place], [address] Chloride [Moles/Vol] 105 mmol/L Normal 98-107 [facility] Comment on above: Performed By: #### L 506.1000, L500.4100, L500.4050, L100.0100 #### [facility] [address] [place], [address] CO2 [Moles/Vol] 28.0 mmol/L Normal 21.0-32.0 [facility] Comment on above: Performed By: #### L 506.1000, L500.4100, L500.4050, L100.0100 #### [facility] [address] [place], [address] Creatinine [Mass/Vol] 0.99 mg/dL Normal 0.55-1.02 [facility] Comment on above: Result Comment: The validity of the calculated GFR GFRAA in patients over 70 years has not been determined. Clinical correlation is essential. Performed By: #### L 506.1000, L500.4100, L500.4050, L100.0100 #### [facility] [address] [place], [address] EST GFR - AA 69 mL/min Normal >60 [facility] Comment on above: Result Comment: Afri can Iraqi GFR Calc Performed By: #### L 506.1000, L500.4100, L500.4050, L100.0100 #### [facility] [address] [place], [address] GAP 6 Normal 5-15 [facility] Comment on above: Performed By: #### L 506.1000, L500.4100, L500.4050, L100.0100 #### [facility] [address] [place], [address] GFR/1.73 sq M.predicted among non-blacks MDRD (S/P/Bld) [Vol rate/Area] 57 mL/min/{1.73_m2} Low >60 [facility] Comment on above: Result Comment: Non- GFR Calc Performed By: #### L 506.1000, L500.4100, L500.4050, L100.0100 #### [facility] [address] [place], [address] Globulin (S) [Mass/Vol] 3.8 g/dL Normal 2.2-4.2 [facility] Comment on above: Performed By: #### L 506.1000, L500.4100, L500.4050, L100.0100 #### [facility] [address] [place], [address] Glucose [Mass/Vol] 92 mg/dL Normal 74-106 [facility] Comment on above: Performed By: #### L 506.1000, L500.4100, L500.4050, L100.0100 #### [facility] [address] [place], [address] Potassium [Moles/Vol] 4.2 mmol/L Normal 3.5-5.1 [facility] Comment on above: Performed By: #### L 506.1000, L500.4100, L500.4050, L100.0100 #### [facility] [address] [place], [address] Sodium [Moles/Vol] 139 mmol/L Normal 136-145 [facility] Comment on above: Performed By: #### L 506.1000, L500.4100, L500.4050, L100.0100 #### [facility] [address] [place], [address] T PROT 7.3 g/dL Normal 6.4-8.2 [facility] Comment on above: Performed By: #### L 506.1000, L500.4100, L500.4050, L100.0100 #### [facility] [address] [place], [address] Urea nitrogen [Mass/Vol] 21 mg/dL High 7-18 [facility] Comment on above: Performed By: #### L 506.1000, L500.4100, L500.4050, L100.0100 #### [facility] [address] [place], [address] Lipid Profileon 09-21-2024 Cholesterol [Mass/Vol] 193 mg/dL Normal 200 [facility] Comment on above: Result Comment: <200 mg/dL Desirable 200-240 mg/dL Borderline >240 mg/dL High Risk Performed By: #### L 506.1000, L500.4100, L500.4050, L100.0100 #### [facility] [address] [place], [address] Cholesterol in HDL [Mass/Vol] 69 mg/dL Normal [facility] Comment on above: Result Comment: The drugs N-Acetylcysteine and Metamizole may falsely depress this assay. Reference Range HDL <40 mg/dL Low HDL Cholesterol HDL >or= 60 mg/dL High HDL Cholesterol Performed By: #### L 506.1000, L500.4100, L500.4050, L100.0100 #### [facility] [address] [place], [address] Cholesterol in LDL [Mass/Vol] 103 mg/dL Normal 0-130 [facility] Comment on above: Performed By: #### L 506.1000, L500.4100, L500.4050, L100.0100 #### [facility] [address] [place], [address] Cholesterol in VLDL [Mass/Vol] 21 mg/dL Normal 5-40 [facility] Comment on above: Performed By: #### L 506.1000, L500.4100, L500.4050, L100.0100 #### [facility] [address] [place], [address] Triglyceride [Mass/Vol] 103 mg/dL Normal [facility] Comment on above: Result Comment: The drugs N-Acetylcysteine and Metamizole may falsely depress this assay. Serum Triglycerides Reference Interval Normal <150 mg/dL Borderline high 150 - 199 mg/dL High 200 - 499 mg/dL Very High > or = 500 mg/dL Performed By: #### L 506.1000, L500.4100, L500.4050, L100.0100 #### [facility] [address] [place], [address] Vitamin D,25 Hydroxyon 09-21 Vitamin D 25-OH 50.0 ng/mL Normal [facility] Comment on above: Result Comment: [place] min D 25(OH) Status Range Deficiency <20 ng/mL (50nmol/L) Insufficiency 20 - 30 ng/mL (50 - 75 nmol/L) Sufficiency 30 - 100 ng/mL (75 - 250 nmol/L) Toxicity >100 ng/mL (>250 nmol/L) Performed By: #### L 506.1000, L500.4100, L500.4050, L100.0100 #### [facility] [address] [place], [address] Absolute lymphocyte countOrd ered By: Kaitlyn Oleary on 08-29-2023 Lymphocytes Auto (Unsp spec) [#/Vol] 2.14 10*3/uL 0.83-4.51 [facility] Basophil percentageOrdered B y: Kaitlyn Oleary on 08-29-2023 Basophils/100 WBC (Bld) 0.4 % 0-1 [facility] Bilirubin [Mass/Vol] 0.70 mg/dL 0.20-1.00 [facility] Comment on above: For patients on eltr ombopag therapy, use of Dimension [place] TBIL is not recommended. Chloride [Moles/Vol] 106 mmol/L 98-107 [facility] Cholesterol [Mass/Vol] 174 mg/dL <200 [facility] Comment on above: <200 mg/dL Desirable 200-240 mg/dL Borderline >240 mg/dL High Risk Eosinophils/100 WBC (Bld) 3.8 % 0-5 [facility] Glucose [Mass/Vol] 94 mg/dL 74-106 [facility] Neutrophils (Bld) [#/Vol] 3.9 10*3/uL 2.0-7.7 [facility] Neutrophils/100 WBC (Bld) 55.4 % 47-70 [facility] Potassium [Moles/Vol] 4.2 mmol/L 3.5-5.1 [facility] Protein [Mass/Vol] 7.2 g/dL 6.4-8.2 [facility] Sodium [Moles/Vol] 140 mmol/L 136-145 [facility] Triglyceride [Mass/Vol] 128 mg/dL <199 [facility] Comment on above: The drugs N-Acetylcy steine and Metamizole may falsely depress this assay.Serum Triglycerides Reference Interval Normal <150 mg/dL Borderline high 150 - 199 mg/dL High 200 - 499 mg/dL Very High > or = 500 mg/dL WBC (Bld) [#/Vol] 7.1 10*3/uL 4.4-11.0 [facility] Blood erythrocytes count (nu mber/volume)Ordered By: Kaitlyn Oleary on 08-29-2023 RBC (Bld) [#/Vol] 4.56 10*6/uL 4.2-5.4 [facility] Blood hemoglobin measurement (mass/volume)Ordered By: Kaitlyn Oleary on 08-29-2023 Hemoglobin (Bld) [Mass/Vol] 13.3 g/dL 12.0-15.0 [facility] Blood lymphocytes/100 leukoc ytesOrdered By: Kaitlyn Oleary on 08-29-2023 Lymphocytes/100 WBC (Bld) 30.4 % 19-41 [facility] Blood monocytes/100 leukocyt esOrdered By: Kaitlyn Oleary on 08-29-2023 Monocytes/100 WBC (Bld) 9.6 % 0-10 [facility] Blood platelet mean volumeOr dered By: Kaitlyn Oleary on 08-29-2023 Platelet mean volume (Bld) [Entitic vol] 10.5 fL 6.2-12.0 [facility] Determination of erythrocyte mean corpuscular volume (MCV)Ordered By: Kaitlyn Oleary on 08-29-2023 MCV (RBC) [Entitic vol] 91.9 fL 81-99 [facility] Hematocrit Auto (Bld) [Volum e fraction]Ordered By: Kaitlyn Oleary on 08-29-2023 Hematocrit (Bld) [Volume fraction] 41.9 % 37-47 [facility] Laboratory - Chemistry and C hemistry - challengeOrdered By: Kaitlyn Oleary on 08-29-2023 ALP [Catalytic activity/Vol] 56 U/L 45-117 [facility] ALT [Catalytic activity/Vol] 22 U/L 13-56 [facility] CO2 [Moles/Vol] 27.0 mmol/L 21.0-32.0 [facility] Globulin (S) [Mass/Vol] 3.7 g/dL 2.2-4.2 [facility] Urea nitrogen/Creatinine [Mass ratio] 15.7 mg/mg 10 [facility] Laboratory - Hematology and Cell countsOrdered By: Kaitlyn Oleary on 08-29-2023 Erythrocyte distribution width (RBC) [Entitic vol] 44.2 fL 35.1-43.9 [facility] Erythrocyte distribution width (RBC) [Ratio] 13.2 % 11.6-14.6 [facility] Immature granulocytes/100 WBC (Bld) 0.400 % 0.0-0.9 [facility] Comment on above: IG% - Immature Granu locytes (promyelocytes, myelocytes and metamyelocytes) > 1% indicates that a LEFT SHIFT is Present. MCH (RBC) [Entitic mass] 29.2 pg 27.0-32.0 [facility] Nucleated RBC/100 WBC (Bld) [Ratio] 0 % 0-5 [facility] MCHC Auto (RBC) [Mass/Vol]Or dered By: Kaitlyn Oleary on 08-29-2023 MCHC (RBC) [Mass/Vol] 31.7 g/dL 32-36 [facility] No Panel InformationOrdered By: Kaitlyn Oleary on 08-29-2023 Estimated GFR (MDRD) Amer 63 mL/min >60 [facility] Comment on above: GFR Calc Estimated GFR (MDRD) Non-Af Amer 52 mL/min >60 [facility] Comment on above: Non- GFR Calc Vitamin D 25-Hydroxy 58.4 ng/mL [facility] Comment on above: Vitamin D 25(OH) Sta tus Range Deficiency <20 ng/mL (50nmol/L) Insufficiency 20 - 30 ng/mL (50 - 75 nmol/L) Sufficiency 30 - 100 ng/mL (75 - 250 nmol/L) Toxicity >100 ng/mL (>250 nmol/L) Platelets bldOrdered By: Nadiya Oleary on 08-29-2023 Platelets (Bld) [#/Vol] 205 10*3/uL 150-450 [facility] Serum or plasma albumin rell urement (mass/volume)Ordered By: Kaitlyn Oleary on 08-29-2023 Albumin [Mass/Vol] 3.5 g/dL 3.2-5.0 [facility] Serum or plasma albumin/glob ulin mass ratioOrdered By: Kaitlyn Oleary on 08-29-2023 Albumin/Globulin [Mass ratio] 0.9 {ratio} 0.9-2.4 [facility] Serum or plasma calcium rell urement (mass/volume)Ordered By: Kaitlyn Oleary on 08-29-2023 Calcium [Mass/Vol] 9.4 mg/dL 8.5-10.1 [facility] Serum or plasma cholesterol in HDL measurement (mass/volume)Ordered By: Kaitlyn Oleary on 08-29-2023 Cholesterol in HDL [Mass/Vol] 62 mg/dL >40 [facility] Comment on above: The drugs N-Acetylcy steine and Metamizole may falsely depress this assay. Reference Range HDL <40 mg/dL Low HDL Cholesterol HDL >or= 60 mg/dL High HDL Cholesterol Serum or plasma cholesterol in VLDL measurement (mass/volume)Ordered By: Kaitlyn Micana rosa on 08-29-2023 Cholesterol in VLDL [Mass/Vol] 26 mg/dL 5-40 [facility] Serum or plasma creatinine m easurement (mass/volume)Ordered By: Kaitlyn Haileana rosa on 08-29-2023 Creatinine [Mass/Vol] 1.08 mg/dL 0.55-1.02 [facility] Comment on above: The validity of the calculated GFR & GFRAA in patients over 70 years has not been determined. Clinical correlation is essential. Serum or plasma low density lipoprotein (LDL) cholesterol measurement (mass/volume)Ordered By: Kaitlyndelores Oleary on 08-29-2023 Cholesterol in LDL [Mass/Vol] 86 mg/dL 0-130 [facility] Serum or plasma urea nitroge n measurement (mass/volume)Ordered By: Kaitlyn Micana rosa on 08-29-2023 Urea nitrogen [Mass/Vol] 17 mg/dL 7-18 [facility] Thin prep Papanicolaou smear with manual screeningOrdered By: Kaitlyn Micana rosa on 08-29-2023 Thin prep Papanicolaou smear with manual screening 15 U/L 15-37 [facility] Thin prep Papanicolaou smear with manual screening 7 5-15 [facility] Absolute lymphocyte counton 08-26-2022 Lymphocytes Auto (Unsp spec) [#/Vol] 2.27 10*3/uL 0.83-4.51 [facility] Work Phone: Basophil percentageon 2021 Basophils/100 WBC (Bld) 0.5 % 0-1 [facility] Work Phone: Bilirubin [Mass/Vol] 0.70 mg/dL 0.20-1.00 [facility] Work Phone: Comment on above: For patients on eltr ombopag therapy, use of Dimension [place] TBIL is not recommended. Chloride [Moles/Vol] 105 mmol/L 98-107 [facility] Work Phone: Cholesterol [Mass/Vol] 195 mg/dL <200 [facility] Work Phone: Comment on above: <200 mg/dL Desirable 200-240 mg/dL Borderline >240 mg/dL High Risk Eosinophils/100 WBC (Bld) 2.0 % 0-5 [facility] Work Phone: Glucose [Mass/Vol] 99 mg/dL 74-106 [facility] Work Phone: Neutrophils (Bld) [#/Vol] 2.9 10*3/uL 2.0-7.7 [facility] Work Phone: Neutrophils/100 WBC (Bld) 48.9 % 47-70 [facility] Work Phone: Potassium [Moles/Vol] 4.4 mmol/L 3.5-5.1 [facility] Work Phone: Protein [Mass/Vol] 7.5 g/dL 6.4-8.2 [facility] Work Phone: Sodium [Moles/Vol] 141 mmol/L 136-145 [facility] Work Phone: Triglyceride [Mass/Vol] 75 mg/dL <199 [facility] Work Phone: Comment on above: The drugs N-Acetylcy steine and Metamizole may falsely depress this assay.Serum Triglycerides Reference Interval Normal <150 mg/dL Borderline high 150 - 199 mg/dL High 200 - 499 mg/dL Very High > or = 500 mg/dL WBC (Bld) [#/Vol] 5.9 10*3/uL 4.4-11.0 [facility] Work Phone: Blood erythrocytes count (nu mber/volume)on 08-26-2022 RBC (Bld) [#/Vol] 4.66 10*6/uL 4.2-5.4 [facility] Work Phone: Blood hemoglobin measurement (mass/volume)on 08-26-2022 Hemoglobin (Bld) [Mass/Vol] 13.6 g/dL 12.0-15.0 [facility] Work Phone: Blood lymphocytes/100 leukoc yteson 08-26-2022 Lymphocytes/100 WBC (Bld) 38.3 % 19-41 [facility] Work Phone: Blood monocytes/100 leukocyt eson 08-26-2022 Monocytes/100 WBC (Bld) 10.0 % 0-10 [facility] Work Phone: Blood platelet mean volumeon 08-26-2022 Platelet mean volume (Bld) [Entitic vol] 10.8 fL 6.2-12.0 [facility] Work Phone: Determination of erythrocyte mean corpuscular volume (MCV)on 08-26-2022 MCV (RBC) [Entitic vol] 93.3 fL 81-99 [facility] Work Phone: Hematocrit Auto (Bld) [Volum e fraction]on 08-26-2022 Hematocrit (Bld) [Volume fraction] 43.5 % 37-47 [facility] Work Phone: Laboratory - Chemistry and C hemistry - challengeon 08-26-2022 ALP [Catalytic activity/Vol] 62 U/L 45-117 [facility] Work Phone: ALT [Catalytic activity/Vol] 25 U/L 13-56 [facility] Work Phone: CO2 [Moles/Vol] 28.0 mmol/L 21.0-32.0 [facility] Work Phone: Globulin (S) [Mass/Vol] 3.7 g/dL 2.2-4.2 [facility] Work Phone: Urea nitrogen/Creatinine [Mass ratio] 14.4 mg/mg 10-20 [facility] Work Phone: Laboratory - Hematology and Cell countson 08-26-2022 Erythrocyte distribution width (RBC) [Entitic vol] 45.8 fL 35.1-43.9 [facility] Work Phone: Erythrocyte distribution width (RBC) [Ratio] 13.5 % 11.6-14.6 [facility] Work Phone: Immature granulocytes/100 WBC (Bld) 0.300 % 0.0-0.9 [facility] Work Phone: Comment on above: IG% - Immature Granu locytes (promyelocytes, myelocytes and metamyelocytes) > 1% indicates that a LEFT SHIFT is Present. MCH (RBC) [Entitic mass] 29.2 pg 27.0-32.0 [facility] Work Phone: Nucleated RBC/100 WBC (Bld) [Ratio] 0 % 0-5 [facility] Work Phone: MCHC Auto (RBC) [Mass/Vol]on 08-26-2022 MCHC (RBC) [Mass/Vol] 31.3 g/dL 32-36 [facility] Work Phone: No Panel Informationon 08-26 Estimated GFR (MDRD) Amer 61 mL/min >60 [facility] Work Phone: Comment on above: GFR Calc Estimated GFR (MDRD) Non-Af Amer 50 mL/min >60 [facility] Work Phone: Comment on above: Non- GFR Calc Vitamin D 25-Hydroxy 72.6 ng/mL [facility] Work Phone: Comment on above: Vitamin D 25(OH) Sta tus Range Deficiency <20 ng/mL (50nmol/L) Insufficiency 20 - 30 ng/mL (50 - 75 nmol/L) Sufficiency 30 - 100 ng/mL (75 - 250 nmol/L) Toxicity >100 ng/mL (>250 nmol/L) Platelets bldon 08-26-2022 Platelets (Bld) [#/Vol] 242 10*3/uL 150-450 [facility] Work Phone: Serum or plasma albumin rell urement (mass/volume)on 08-26-2022 Albumin [Mass/Vol] 3.8 g/dL 3.2-5.0 [facility] Work Phone: Serum or plasma albumin/glob ulin mass ratioon 08-26-2022 Albumin/Globulin [Mass ratio] 1.0 {ratio} 0.9-2.4 [facility] Work Phone: Serum or plasma calcium rell urement (mass/volume)on 08-26-2022 Calcium [Mass/Vol] 9.5 mg/dL 8.5-10.1 [facility] Work Phone: Serum or plasma cholesterol in HDL measurement (mass/volume)on 08-26-2022 Cholesterol in HDL [Mass/Vol] 80 mg/dL >40 [facility] Work Phone: Comment on above: The drugs N-Acetylcy steine and Metamizole may falsely depress this assay. Reference Range HDL <40 mg/dL Low HDL Cholesterol HDL >or= 60 mg/dL High HDL Cholesterol Serum or plasma cholesterol in VLDL measurement (mass/volume)on 08-26-2022 Cholesterol in VLDL [Mass/Vol] 15 mg/dL 5-40 [facility] Work Phone: Serum or plasma creatinine m easurement (mass/volume)on 08-26-2022 Creatinine [Mass/Vol] 1.11 mg/dL 0.55-1.02 [facility] Work Phone: Comment on above: The validity of the calculated GFR & GFRAA in patients over 70 years has not been determined. Clinical correlation is essential. Serum or plasma low density lipoprotein (LDL) cholesterol measurement (mass/volume)on 08-26-2022 Cholesterol in LDL [Mass/Vol] 100 mg/dL 0-130 [facility] Work Phone: Serum or plasma urea nitroge n measurement (mass/volume)on 08-26-2022 Urea nitrogen [Mass/Vol] 16 mg/dL 7-18 [facility] Work Phone: Thin prep Papanicolaou smear with manual screeningon 08-26-2022 Thin prep Papanicolaou smear with manual screening 21 U/L 15-37 [facility] Work Phone: Thin prep Papanicolaou smear with manual screening 8 5-15 [facility] Work Phone: Vital Signs Date Time Vital Sign Value Performing Clinician Rosi higuera 07-27-2025 09:18-0400 Body height 154.[address] Kaitlyn Oleary DO Work Phone: [facility] 07-27-2025 09:18-0400 Body mass index (BMI) [Ratio] 27.9 kg/m2 Dr. Kaitlyn Oleary DO Work Phone: [facility] 07-27-2025 09:18-0400 Body temperature 98 [degF] Dr. Kaitlyn Oleary DO Work Phone: [facility] 07-27-2025 09:18-0400 Body weight 67.[address] Kaitlyn Oleary DO Work Phone: [facility] 07-27-2025 09:18-0400 Diastolic blood pressure 82 mm[Hg] Dr. Kaitlyn Oleary DO Work Phone: [facility] 07-27-2025 09:18-0400 Heart rate 74 /min Dr. Kaitlyn Oleary DO Work Phone: [facility] 07-27-2025 09:18-0400 Systolic blood pressure 124 mm[Hg] Dr. Kaitlyn Oleary DO Work Phone: [facility] Encounters Encounter Date Encounter Type Care Provider Facility Start: 07-27-2025 End: 07-27-[address] Brigid Sethi MD -[facility] Work Phone: Start: 07-27-2025 End: 07-27-[address] Kaitlyn Oleary DO Work Phone: -[facility] Start: 05-10-2025 Non-patient / Non-visit Dr. Brigid smith MD -[facility] Work Phone: Start: 10-20-2024 ambulatory Kaitlyn Oleary Facility:[facility] Start: 09-21-2024 End: 09-21-2024 ambulatory Kaitlyn Malys Facility:[facility] Start: 08-29-2023 End: 08-29-2023 ambulatory [facility] Work Phone: Start: 08-29-2023 End: 08-29-2023 Patient encounter procedure [facility] [place] Work Phone: Start: 08-07-2023 End: 08-07-2023 ambulatory [facility] Work Phone: Start: 08-07-2023 End: 08-07-2023 Patient encounter procedure [facility]Out[facility] Bone Densitometry Work Phone: Start: 08-26-2022 End: 08-26-2022 ambulatory [facility] Work Phone: Start: 08-26-2022 End: 08-26-2022 Patient encounter procedure [facility] Start: 07-24-2022 End: 07-24-2022 ambulatory [facility] Work Phone: Start: 07-24-2022 End: 07-24-2022 Patient encounter procedure [facility] Breast Imaging Procedures Date Procedure Procedure Detail Performing Clinician Start: 08-07-2023 Dual energy X-ray absorptiometry Start: 08-07-2023 Screening mammography Start: 07-24-2022 Screening mammography Payers Date Payer Category Payer Private Health Insurance [id number] 2024 Self-pay [id number] 2006 Medicare [id number] Unknown [id number] Unknown [id number] Unknown [id number] Social History Date Type Detail [facility] Work Phone: Start: 1940 Sex Assigned At Female [facility] Tobacco smoking stat [facility] Unknown if ever smoked [facility] Work Phone: Sex Female [facility] Evaluation note Note Date & Type Note Facility Evaluation note No assessment information availa ble [facility] Work Phone: Reason for referral (narrative) Note Date & Type Note Facility Reason for referral (narrative) No reason for referral information available [facility] Work Phone: Chief Complaint and Reason for [...] section and content) DATE CREATED AUTHOR 09/07/2025 [facility] FOR RECORDS PERTAINING TO PATIENTS WHO ARE [...] BE BASED ON THE PRIMARY CLINICAL RECORDS. [employer] [facility]. provides no warranty or guarantee of the accuracy or completeness of information in this document.
== END | disposition home or self-care (01) ==
PROVIDERS: PCP Family Medicine; Referring Provider Family Medicine; Visit Provider Family Medicine
DX: Z78.0 Asymptomatic menopausal state (principal); M81.0 Age-related osteoporosis without current pathological fracture
CPT/HCPCS: 77080